=== PATIENT | female | born 1980 | race American Indian/Alaskan Native ===

== ENCOUNTER 2016-08-19 08:59 | Outpatient (CLI) | payer OTHER ==
[2016-08-19] MEDS ORDERED: LACTATED RINGERS 500 ML IV SCH (09:11)
[2016-08-19 09:28] VITALS: BP 99/60
[2016-08-19 09:42] LABS: Urine Drugs of Abuse Note Disclamer
[2016-08-19 09:55] LABS: Bilirubin,Urine NEG (Negative); Blood,Urine NEG (Negative); Ketones,Urine NEG (Negative); Leukocyte Esterase,Urine NEG (Negative); Mucus,Urine FEW /HPF; Nitrite,Urine NEG (Negative); Protein,Urine <15 mg/dL mg/dL (Negative); RBC,Urine < 1.0 /HPF (0.0-6.0); Urobilinogen,Urine < 2.0 mg/dL (<2.0)
[2016-08-19 09:56] LABS: WBC,Urine < 1.0 /HPF (0.0-6.0)
--- NOTE | 2016-08-19 15:36 | Ultrasound Report ---
COMPLETE OB ULTRASOUND: Gestation: blackwell Position: cephalic Amniotic Fluid: x Placenta: right anterior/posterior Placental Grade: 0 Heart Rate: 145 BPM Cervical length: 3.3 cm (Normal > 3 cm) NEUROANATOMY VISUALIZED: Choroid Plexus Cisterna Magnum Cerebellum Lateral Ventricle ANATOMY VISUALIZED: Stomach Kidneys Bladder Diaphragm 4 Chamber Heart Heart 3 Vessel Cord Abd. Cord Insert SPINE VISUALIZED: Transverse The following are not demonstrated due to maternal body habitus or lie: BPD: 4.7 cm = 20 w 0 d HC: 16.8 cm = 19 w 3 d AC: 14.7 cm = 20 w 0 d FL: 3.3 cm = 20 w 0 d HC/AC Ratio: 1.14 Cephalic Index: 80.6 Estimated Weight: 334 grams US Gest. Age = 20 w 0 d EDC: 01/06/17 AP and longitudinal spine not visualized.
== END 2016-08-19 12:07 | disposition home or self-care (01) ==
LOC: TRG 08:59
PROVIDERS: ATTEND Obstetrics & Gynecology
DX: O47.02 False labor before 37 completed weeks of gestation, second trimester (principal); Z3A.20 20 weeks gestation of pregnancy
CPT/HCPCS: 76805; 80307; 81001

== ENCOUNTER 2017-05-23 12:36 | Emergency (ER) | payer MEDICAID ==
[2017-05-23] MEDS ORDERED: NACL 0.9% 1000 ML 1,000 ML IV ONE (13:20)
[2017-05-23] MEDS ORDERED: MORPHINE IV ONE (13:22)
--- NOTE | 2017-05-23 13:25 | Emergency Department Report ---
Chief Complaint: Abdominal Pain Stated Complaint: ABDOMINAL PAIN - HPI History of Present Illness: 36-year-old female presents via EMS with 2 day history of lower abdominal discomfort, diarrhea and a productive cough that she feels in her mid back. She has tried some ibuprofen without relief. History of diverticulitis and says this feels similar in regards to abdominal discomfort. No PCP. No recent travel or sick contacts at home. Patient gave one month ago and says that she is currently now on her menstrual cycle. She says she has not had intercourse since giving and denies chance of . - ROS Review of Systems: Patient is positive for productive cough, abdominal pain, diarrhea. Patient is negative for fever, constipation, chest pain, shortness of breath, vaginal bleeding or discharge - Exam Vital Signs: Vital Signs 05/23/17 12:39 Temperature 98.3 F Pulse Rate 107 H Respiratory 16 Rate Blood Pressure 129/81 O2 Sat by Pulse 98 Oximetry Physical Exam: Patient is awake and alert. Lower abdominal tenderness to palpation. Heart and lungs sounds are normal to auscultation but slightly tachycardia. No focal deficits. MSE screening note: Focused history and physical exam performed. Due to findings the following was ordered: I ordered a CBC, CMP, serum , urinalysis, lipase. We will place an IV and give IV fluid and pain medication. ED Disposition for MSE Condition: Stable Instructions: Abdominal Pain (ED)
[2017-05-23 13:54] LABS: Basophils # (Auto) 0.1 K/mm3 (0.0-0.1); Basophils % (Auto) 1.3 % (0.0-1.8); Eosinophils # (Auto) 0.3 K/mm3 (0.0-0.4); Eosinophils % (Auto) 4.6 % (0.0-4.3); Hematocrit 38.1 % (30.3-42.9); Hemoglobin 12.6 gm/dl (10.1-14.3); Lymphocytes # (Auto) 0.6 K/mm3 (1.2-5.4); Lymphocytes % (Auto) 10.2 % (13.4-35.0); Mean Corpuscular HGB Conc 33 % (30-34); Mean Corpuscular Hemoglobin 31 pg (28-32); Mean Corpuscular Volume 95 fl (79-97); Monocytes # (Auto) 0.5 K/mm3 (0.0-0.8); Monocytes % (Auto) 9.1 % (0.0-7.3); Platelet Count 238 K/mm3 (140-440); Red Blood Count 4.02 M/mm3 (3.65-5.03); Red Cell Distribution Width 14.7 % (13.2-15.2)
[2017-05-23 14:07] LABS: Alanine Aminotransferase 20 units/L (7-56); Albumin 3.8 g/dL (3.9-5); BUN/Creatinine Ratio 14; Blood Urea Nitrogen 11 mg/dL (7-17); Calcium 8.8 mg/dL (8.4-10.2); Hemolysis Index 9; Lipase 17 units/L (13-60)
[2017-05-23 14:08] LABS: Bilirubin,Direct < 0.2 mg/dL (0-0.2)
[2017-05-23] MEDS ORDERED: TESSALON PERLES PO ONE (14:16)
[2017-05-23] MEDS ORDERED: DUONEB *Not for PRN Use IH ONE (14:25)
--- NOTE | 2017-05-23 15:41 | XRay Report ---
FINAL REPORT EXAM: XR ABD SERIES W CXR 1V HISTORY: cough, abd pain TECHNIQUE: Frontal chest and two views of the abdomen were performed Comparison: None FINDINGS: Normal heart size. There is an 18 millimeter dense nodularity in the right lung base which presumably represents the patient's nipple. The patient's left nipple is also prominent. Lungs are otherwise clear and well expanded with no hilar contour abnormality. There is no free air. No suspicious calcifications. Moderate stool air and stool throughout the small and large bowel in a nonobstructive pattern. No definite ileus. IMPRESSION: No definite acute pathology. Prominent nipple shadows in the bases.
[2017-05-23] MEDS ORDERED: DILAUDID IV ONE (16:51)
[2017-05-23] MEDS ORDERED: ZOFRAN IV ONE (16:52)
--- NOTE | 2017-05-23 16:58 | Emergency Department Report ---
ED N/V/D HPI - General Chief complaint: Abdominal Pain Stated complaint: ABDOMINAL PAIN Time Seen by Provider: 05/23/17 16:32 Source: patient Mode of arrival: Ambulatory Limitations: No Limitations - History of Present Illness Initial comments: Physical 36-year-old female with a past medical history significant for diverticulitis who comes in with a 2 day complaint of intermittent abdominal pain as well as upper respiratory type infections. She states that she just had her baby about a month ago. She also reports that the pain today is very similar to her diverticular pain which she has experienced in the past. She denies any kind of fever nausea vomiting but admits to intermittent diarrhea. Denies any blood in bowel movements. She states that her diverticular pain flares up every couple of months. She states she's had over 30 CAT scans and does not want any CAT scans done since she knows this is her diverticular pain. She states that she usually gets antibiotics for this and would appreciate some today. She also states that she's had a cough and cold as well for the past couple of days. She is concerned about the flu and would like to be tested for it. She denies other complaints at this time. 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 MD complaint: diarrhea, abdominal pain -: days(s) (2) Description of Vomiting: other (no vomiting) Description of Diarrhea: water Associated Abdominal Pain: Yes Location: LLQ, RLQ Radiation: none Severity: moderate Pain Scale: 8 Quality: cramping, stabbing Consistency: intermittent Improves with: none Worsens with: none Context: other (history of diverticulitis.) Associated Symptoms: denies other symptoms - Related Data Previous Rx's Medication Instructions Recorded Last Taken Type Promethazine [Phenergan TAB] 25 mg PO Q6HR PRN #14 tab 01/10/15 Unknown Rx oxyCODONE /ACETAMINOPHEN [Percocet 1 tab PO Q6HR PRN #15 tablet 01/10/15 Unknown Rx 5/325] Ciprofloxacin HCl [Ciprofloxacin 500 mg PO BID #20 tablet 05/23/17 Unknown Rx TAB] Hycodan Cough Syrup 5 ml PO BID PRN #100 ml 05/23/17 Unknown Rx Ondansetron [Zofran Odt] 4 mg PO Q8HR PRN #20 tab.rapdis 05/23/17 Unknown Rx metroNIDAZOLE [Flagyl TAB] 500 mg PO TID #30 tab 05/23/17 Unknown Rx Allergies Allergy/AdvReac Type Severity Reaction Status Date / Time No Known Allergies Allergy Verified 05/23/17 12:39 ED Review of Systems ROS: Stated complaint: ABDOMINAL PAIN Other details as noted in HPI Comment: All other systems reviewed and negative Constitutional: no symptoms reported Eyes: denies: eye pain, eye discharge ENT: as per HPI, congestion. denies: ear pain, dental pain, hearing loss, epistaxis Respiratory: no symptoms reported Cardiovascular: as per HPI. denies: chest pain, palpitations Endocrine: no symptoms reported Gastrointestinal: as per HPI Genitourinary: as per HPI Musculoskeletal: as per HPI Skin: as per HPI Neurological: as per HPI Psychiatric: as per HPI Hematological/Lymphatic: as per HPI ED Past Medical Hx - Past Medical History Additional medical history: C-DIFF, diverticulitis - Surgical History Additional Surgical History: D & C, polyps removed - Social History Smoking Status: Never Smoker Substance Use Type: None - Medications Home Medications: Home Medications Medication Instructions Recorded Confirmed Last Taken Type Promethazine [Phenergan TAB] 25 mg PO Q6HR PRN #14 tab 01/10/15 Unknown Rx oxyCODONE /ACETAMINOPHEN [Percocet 1 tab PO Q6HR PRN #15 tablet 01/10/15 Unknown Rx 5/325] Ciprofloxacin HCl [Ciprofloxacin 500 mg PO BID #20 tablet 05/23/17 Unknown Rx TAB] Hycodan Cough Syrup 5 ml PO BID PRN #100 ml 05/23/17 Unknown Rx Ondansetron [Zofran Odt] 4 mg PO Q8HR PRN #20 tab.rapdis 05/23/17 Unknown Rx metroNIDAZOLE [Flagyl TAB] 500 mg PO TID #30 tab 05/23/17 Unknown Rx ED Physical Exam - General Limitations: No Limitations General appearance: alert, in no apparent distress - Head Head exam: Present: atraumatic - Eye Eye exam: Present: normal appearance, PERRL, EOMI - ENT ENT exam: Present: normal exam, normal orophraynx - Neck Neck exam: Present: normal inspection, full ROM - Respiratory Respiratory exam: Present: normal lung sounds bilaterally. Absent: respiratory distress, wheezes, rales, rhonchi - Cardiovascular Cardiovascular Exam: Present: normal rhythm, tachycardia. Absent: irregular rhythm - GI/Abdominal GI/Abdominal exam: Present: soft, tenderness, hyperactive bowel sounds. Absent : guarding, rebound, rigid - Rectal Rectal exam: Present: deferred - Extremities Exam Extremities exam: Present: normal inspection - Back Exam Back exam: Present: normal inspection - Neurological Exam Neurological exam: Present: alert, oriented X3, CN II-XII intact - Psychiatric Psychiatric exam: Present: normal affect, agitated - Skin Skin exam: Present: warm, dry, intact, normal color ED Course Vital Signs 05/23/17 12:39 Temperature 98.3 F Pulse Rate 107 H Respiratory 16 Rate Blood Pressure 129/81 O2 Sat by Pulse 98 Oximetry - Reevaluation(s) Reevaluation #1: 05/23/17 17:01 At this time I do not see the need to order a CAT scan of her abdomen and pelvis. Since she is concerned about the flu we'll go ahead and do a flu swab. Her blood work from the medical screening examination does appear to be mostly within normal range. White count is not elevated nor does she have any kind of electrolyte abnormalities at this time. Her lipase is also within normal range. Her plain films do reveal some nonspecific bowel gas patterns. Awaiting for the UA results to return as well as the flu swab. For her pain she 's already had morphine but she states it only lasted for "a second" and then the pain came back. When asked she does state the Dilantin does better for her and that she would prefer at this time. I will give her 1 mg of Dilaudid IV as well as 4 mg of Zofran IV. She requested a facemask as well which I went ahead and provided to her. When the lab results are back we will discuss how to proceed. 05/23/17 18:12 I reviewed the findings with the patient and advised her that all the blood test and x-rays were essentially negative. She does not have flu. She does not have strep throat. Her urinalysis is also within normal limits. The patient is requesting something for a cough or which I will give her a nonnarcotic cough syrup. She is requesting IV antibiotics because she says that 's what she gets whenever her diverticulitis flares up. So at this time we will go ahead and give her Levaquin IV as well as Flagyl IV. I will be discharging this patient as I do not see a reason for admission at this time. ED Medical Decision Making - Lab Data Result diagrams: 05/23/17 13:35 05/23/17 13:35 Critical care attestation.: If time is entered above; I have spent that time in minutes in the direct care of this critically ill patient, excluding procedure time. ED Disposition Clinical Impression: Diverticulitis Upper respiratory infection Qualifiers: URI type: unspecified viral URI Qualified Code(s): J06.9 - Acute upper respiratory infection, unspecified Disposition: - TO HOME OR SELFCARE Is pt being admited?: No Does the pt Need Aspirin: No Condition: Stable Instructions: Abdominal Pain (ED), Diverticulitis (ED), Upper Respiratory Infection (ED) Additional Instructions: rest, fluids, follow up with your primary care doctor and/or GI doctor, return as needed, watch for worsening, new symptoms, call 911 if you think you're having a life threatening emergency. Prescriptions: Ciprofloxacin HCl [Ciprofloxacin TAB] 500 mg PO BID #20 tablet Hycodan Cough Syrup 5 ml PO BID PRN #100 ml PRN Reason: Cough metroNIDAZOLE [Flagyl TAB] 500 mg PO TID #30 tab Ondansetron [Zofran Odt] 4 mg PO Q8HR PRN #20 tab.rapdis PRN Reason: Nausea And Vomiting Referrals: PRIMARY CARE,MD [Primary Care Provider] - 3-5 Days
[2017-05-23 17:43] LABS: Bilirubin,Urine NEG (Negative); Blood,Urine LG (Negative); Color,Urine Yellow (Yellow); Nitrite,Urine NEG (Negative); Protein,Urine <15 mg/dL mg/dL (Negative); WBC,Urine < 1.0 /HPF (0.0-6.0)
[2017-05-23] MEDS ORDERED: LEVAQUIN 500MG/100ML 500 MG/100 ML BAG IV ONE (17:54)
[2017-05-23] MEDS ORDERED: FLAGYL 500 MG/100 ML 500 MG/100 ML BAG IV SCH (18:00)
[2017-05-23] MEDS ORDERED: TORADOL IV ONE (19:11)
[2017-05-23] MEDS ORDERED: NORCO 5/325 PO ONE (19:22)
[2017-05-23 21:04] VITALS: BP 122/73
== END 2017-05-23 21:04 | disposition home or self-care (01) ==
LOC: ED 12:36
DX: K57.92 Diverticulitis of intestine, part unspecified, without perforation or abscess without bleeding (principal); J06.9 Acute upper respiratory infection, unspecified
CPT/HCPCS: 36415; 74022; 80048; 80074; 81001; 83690; 84703; 85025; 87116; 87400; 87430; 96361; 96365; 96368; 96375; 99284; J1170; J1956; J2270; J2405; J7030

== ENCOUNTER 2018-07-15 08:27 | Emergency (ER) | payer MEDICAID ==
[2018-07-15 09:20] LABS: Basophils % (Auto) 0.3 % (0.0-1.8); Eosinophils # (Auto) 0.2 K/mm3 (0.0-0.4); Eosinophils % (Auto) 3.6 % (0.0-4.3); Hematocrit 39.6 % (30.3-42.9); Hemoglobin 13.2 gm/dl (10.1-14.3); Lymphocytes # (Auto) 0.7 K/mm3 (1.2-5.4); Lymphocytes % (Auto) 11.4 % (13.4-35.0); Mean Corpuscular HGB Conc 33 % (30-34); Mean Corpuscular Volume 97 fl (79-97); Monocytes # (Auto) 0.7 K/mm3 (0.0-0.8); Monocytes % (Auto) 11.7 % (0.0-7.3); Platelet Count 232 K/mm3 (140-440); Red Blood Count 4.09 M/mm3 (3.65-5.03); Red Cell Distribution Width 13.8 % (13.2-15.2)
[2018-07-15 09:27] LABS: Bilirubin,Urine NEG (Negative); Blood,Urine SM (Negative); Color,Urine Yellow (Yellow); Protein,Urine <15 mg/dL mg/dL (Negative); Urobilinogen,Urine < 2.0 mg/dL (<2.0); WBC,Urine < 1.0 /HPF (0.0-6.0)
[2018-07-15 09:33] LABS: Alanine Aminotransferase 16 units/L (7-56); Albumin 4.2 g/dL (3.9-5); BUN/Creatinine Ratio 14; Blood Urea Nitrogen 10 mg/dL (7-17); Calcium 9.2 mg/dL (8.4-10.2); Hemolysis Index 7
[2018-07-15] MEDS ORDERED: MORPHINE IV ONE ×2 (10:05→12:45)
--- NOTE | 2018-07-15 10:08 | Emergency Department Report ---
ED Abdominal Pain HPI - General Chief Complaint: Abdominal Pain Stated Complaint: ABD PAIN Source: patient Mode of arrival: Ambulatory Limitations: No Limitations - History of Present Illness Initial Comments: This is a 37-year-old [place] female that presents with diffuse abdominal pain for 4 days. Past medical history of diverticulitis and C. difficile. She states she ate some peanut butter and jelly and weak. A few days ago and been sick ever since. She is now complaining of abdominal pain and diarrhea. She is currently taking Tylenol with no improvement of symptoms. She denies that her stools, nausea or vomiting, chest pain, fever, or cough. MD Complaint: abdominal pain Onset/Timin -: days(s) Location: diffuse Radiation: none Migration to: no migration Severity scale (0 -10): 8 Quality: aching, sharp Consistency: constant Improves With: nothing Worsens With: eating Associated Symptoms: diarrhea. denies: nausea, vomiting, fever, chills, constipation, dysuria, hematemesis, hematochezia, melena, hematuria, anorexia, syncope Treatments Prior to Arrival: NSAIDs - Related Data LMP Date: 06/17/18 Previous Rx's Medication Instructions Recorded Last Taken Type Promethazine [Phenergan TAB] 25 mg PO Q6HR PRN #14 tab 01/10/15 Unknown Rx oxyCODONE /ACETAMINOPHEN [Percocet 1 tab PO Q6HR PRN #15 tablet 01/10/15 Unknown Rx 5/325] Ciprofloxacin HCl [Ciprofloxacin 500 mg PO BID #20 tablet 05/23/17 Unknown Rx TAB] Hycodan Cough Syrup 5 ml PO BID PRN #100 ml 05/23/17 Unknown Rx Ondansetron [Zofran Odt] 4 mg PO Q8HR PRN #20 tab.rapdis 05/23/17 Unknown Rx metroNIDAZOLE [Flagyl TAB] 500 mg PO TID #30 tab 05/23/17 Unknown Rx Ciprofloxacin HCl [Cipro] 500 mg PO BID #14 tablet 07/15/18 Unknown Rx traMADol [Ultram 50 MG tab] 50 mg PO Q6HR PRN #12 tablet 07/15/18 Unknown Rx Allergies Allergy/AdvReac Type Severity Reaction Status Date / Time ketorolac [From Toradol] Allergy Unknown Verified 07/15/18 12:17 ED Review of Systems ROS: Stated complaint: ABD PAIN Other details as noted in HPI Constitutional: denies: chills, fever Respiratory: denies: cough, shortness of breath, wheezing Cardiovascular: denies: chest pain, palpitations Gastrointestinal: abdominal pain, diarrhea. denies: nausea Skin: denies: rash, lesions Neurological: denies: headache, weakness, paresthesias Psychiatric: denies: anxiety, depression ED Past Medical Hx - Past Medical History Previous Medical History?: Yes Additional medical history: C-DIFF, diverticulitis - Surgical History Past Surgical History?: Yes Additional Surgical History: D & C, polyps removed - Social History Smoking Status: Never Smoker Substance Use Type: None - Medications Home Medications: Home Medications Medication Instructions Recorded Confirmed Last Taken Type Promethazine [Phenergan TAB] 25 mg PO Q6HR PRN #14 tab 01/10/15 Unknown Rx oxyCODONE /ACETAMINOPHEN [Percocet 1 tab PO Q6HR PRN #15 tablet 01/10/15 Unknown Rx 5/325] Ciprofloxacin HCl [Ciprofloxacin 500 mg PO BID #20 tablet 05/23/17 Unknown Rx TAB] Hycodan Cough Syrup 5 ml PO BID PRN #100 ml 05/23/17 Unknown Rx Ondansetron [Zofran Odt] 4 mg PO Q8HR PRN #20 tab.rapdis 05/23/17 Unknown Rx metroNIDAZOLE [Flagyl TAB] 500 mg PO TID #30 tab 05/23/17 Unknown Rx Ciprofloxacin HCl [Cipro] 500 mg PO BID #14 tablet 07/15/18 Unknown Rx traMADol [Ultram 50 MG tab] 50 mg PO Q6HR PRN #12 tablet 07/15/18 Unknown Rx ED Physical Exam - General Limitations: No Limitations General appearance: alert, in no apparent distress - Respiratory Respiratory exam: Present: normal lung sounds bilaterally. Absent: respiratory distress - Cardiovascular Cardiovascular Exam: Present: regular rate, normal rhythm. Absent: systolic murmur, diastolic murmur, rubs, gallop - GI/Abdominal GI/Abdominal exam: Present: soft, tenderness (RUQ & RLQ ), normal bowel sounds. Absent: distended, guarding, rebound, rigid, organomegaly, mass, bruit, pulsatile mass, hernia - Back Exam Back exam: Absent: CVA tenderness (R), CVA tenderness (L) - Neurological Exam Neurological exam: Present: alert, oriented X3 - Psychiatric Psychiatric exam: Present: normal affect, normal mood - Skin Skin exam: Present: warm, dry, intact, normal color. Absent: rash ED Course Vital Signs 07/15/18 08:34 Temperature 97.9 F Pulse Rate 88 Respiratory 16 Rate Blood Pressure 141/90 O2 Sat by Pulse 99 Oximetry ED Medical Decision Making - Lab Data Result diagrams: 07/15/18 09:01 07/15/18 09:01 Lab Results 07/15/18 07/15/18 07/15/18 Range/Units 09:01 09:01 09:01 WBC 6.4 (4.5-11.0) K/mm3 RBC 4.09 (3.65-5.03) M/mm3 Hgb 13.2 (10.1-14.3) gm/dl Hct 39.6 (30.3-42.9) % MCV 97 (79-97) fl MCH 32 (28-32) pg MCHC 33 (30-34) % RDW 13.8 (13.2-15.2) % Plt Count 232 (140-440) K/mm3 Lymph % (Auto) 11.4 L (13.4-35.0) % [place] % (Auto) 11.7 H (0.0-7.3) % Eos % (Auto) 3.6 (0.0-4.3) % Baso % (Auto) 0.3 (0.0-1.8) % Lymph # 0.7 L (1.2-5.4) K/mm3 [place] # 0.7 (0.0-0.8) K/mm3 Eos # 0.2 (0.0-0.4) K/mm3 Baso # 0.0 (0.0-0.1) K/mm3 Seg Neutrophils % 73.0 H (40.0-70.0) % Seg Neutrophils # 4.7 (1.8-7.7) K/mm3 Sodium 140 (137-145) mmol/L Potassium 4.0 (3.6-5.0) mmol/L Chloride 101.5 (98-107) mmol/L Carbon Dioxide 29 (22-30) mmol/L Anion Gap 14 mmol/L BUN 10 (7-17) mg/dL Creatinine 0.7 (0.7-1.2) mg/dL Estimated GFR > 60 ml/min BUN/Creatinine Ratio 14 % Glucose 147 H (65-100) mg/dL Calcium 9.2 (8.4-10.2) mg/dL Total Bilirubin 0.40 (0.1-1.2) mg/dL AST 19 (5-40) units/L ALT 16 (7-56) units/L Alkaline Phosphatase 70 (35-129) units/L Total Protein 7.3 (6.3-8.2) g/dL Albumin 4.2 (3.9-5) g/dL Albumin/Globulin Ratio 1.4 % HCG, Qual Negative (Negative) Urine Color (Yellow) Urine Turbidity (Clear) Urine pH (5.0-7.0) Ur Specific [place] (1.003-1.030) Urine Protein (Negative) mg/dL Urine Glucose (UA) (Negative) mg/dL Urine Ketones (Negative) mg/dL Urine Blood (Negative) Urine Nitrite (Negative) Urine Bilirubin (Negative) Urine Urobilinogen (<2.0) mg/dL Ur Leukocyte Esterase (Negative) Urine WBC (Auto) (0.0-6.0) /HPF Urine RBC (Auto) (0.0-6.0) /HPF U Epithel Cells (Auto) (0-13.0) /HPF 07/15/18 Range/Units 09:14 WBC (4.5-11.0) K/mm3 RBC (3.65-5.03) M/mm3 Hgb (10.1-14.3) gm/dl Hct (30.3-42.9) % MCV (79-97) fl MCH (28-32) pg MCHC (30-34) % RDW (13.2-15.2) % Plt Count (140-440) K/mm3 Lymph % (Auto) (13.4-35.0) % [place] % (Auto) (0.0-7.3) % Eos % (Auto) (0.0-4.3) % Baso % (Auto) (0.0-1.8) % Lymph # (1.2-5.4) K/mm3 [place] # (0.0-0.8) K/mm3 Eos # (0.0-0.4) K/mm3 Baso # (0.0-0.1) K/mm3 Seg Neutrophils % (40.0-70.0) % Seg Neutrophils # (1.8-7.7) K/mm3 Sodium (137-145) mmol/L Potassium (3.6-5.0) mmol/L Chloride (98-107) mmol/L Carbon Dioxide (22-30) mmol/L Anion Gap mmol/L BUN (7-17) mg/dL Creatinine (0.7-1.2) mg/dL Estimated GFR ml/min BUN/Creatinine Ratio % Glucose (65-100) mg/dL Calcium (8.4-10.2) mg/dL Total Bilirubin (0.1-1.2) mg/dL AST (5-40) units/L ALT (7-56) units/L Alkaline Phosphatase (35-129) units/L Total Protein (6.3-8.2) g/dL Albumin (3.9-5) g/dL Albumin/Globulin Ratio % HCG, Qual (Negative) Urine Color Yellow (Yellow) Urine Turbidity Clear (Clear) Urine pH 6.0 (5.0-7.0) Ur Specific [place] 1.019 (1.003-1.030) Urine Protein <15 mg/dl (Negative) mg/dL Urine Glucose (UA) Neg (Negative) mg/dL Urine Ketones Neg (Negative) mg/dL Urine Blood Sm (Negative) Urine Nitrite Neg (Negative) Urine Bilirubin Neg (Negative) Urine Urobilinogen < 2.0 (<2.0) mg/dL Ur Leukocyte Esterase Neg (Negative) Urine WBC (Auto) < 1.0 (0.0-6.0) /HPF Urine RBC (Auto) 4.0 (0.0-6.0) /HPF U Epithel Cells (Auto) 2.0 (0-13.0) /HPF - Radiology Data Radiology results: report reviewed CT ABDOMEN PELVIS WITH CONTRAST: HISTORY: Right upper quadrant and right lower quadrant abdominal pain. COMPARISON: CT abdomen pelvis with contrast dated 01/10/15. TECHNIQUE: Helical CT in 1.25mm intervals following IV contrast. Sagittal and coronal reconstructions. FINDINGS: Lung bases: Normal. Liver: Normal. Biliary system: Normal. Pancreas: The pancreatic parenchyma is unremarkable. The pancreatic duct appears mildly dilated. No obvious pancreatic inflammation or mass. Spleen: Normal. Kidneys/ureters/bladder: Normal. Adrenal glands: Normal. Aorta: Normal. Intestines: No oral contrast was administered which limits this exam. There are numerous diverticula throughout the length of the colon. This appears advanced for this persons age. No obvious site of acute diverticulitis on this limited exam. There is a 2.5 cm rounded collection with a fluid level within the duodenal C-loop. This may represent a duodenal diverticulum. Peptic ulcer disease is thought less likely but is difficult to exclude. Appendix: Not confidently identified, correlate with surgical history. Pelvic viscera: 2.0 cm peripherally enhancing right ovarian cyst is identified. The uterus and left adnexa are unremarkable. Ascites: Small pelvic ascites. Adenopathy: None. Musculoskeletal: Normal. IMPRESSION: 2 cm right ovarian cyst. Small pelvic ascites. Diffuse diverticulosis of the colon. No obvious acute diverticulitis but this examination is limited without oral contrast. The appendix is not confidently identified. Probable 2.5 cm duodenal diverticulum as described above. A penetrating ulcer is thought less likely. Please correlate with the patient's clinical presentation. - Medical Decision Making This is a 37 y.o. female that presents with vomiting and diarrhea that started last night. Patient is stable and was examined by me. Vitals stable. Obtained labs and CT of abdomen and. 2 cm right ovarian cyst. Small pelvic ascites. D iffuse diverticulosis of the colon. No obvious acute diverticulitis but this examination is limited without oral contrast. The appendix is not confidently identified. Probable 2.5 cm duodenal diverticulum as described above. A penetrating ulcer is thought less likely. Please correlate with the patient's clinical presentation. The site initiated. Given normal saline, morphine, Protonix, and zofran in ER. Diverticular disease. Start cipro and tramadols. Discussed plan with patient and agreed to plan. No further questions noted by the patient. Discharged home in stable condition. Follow up with PCP in 2-3 days. Critical care attestation.: If time is entered above; I have spent that time in minutes in the direct care of this critically ill patient, excluding procedure time. ED Disposition Clinical Impression: Diverticular disease of colon Abdominal pain Qualifiers: Abdominal location: generalized Qualified Code(s): R10.84 - Generalized a bdominal pain Diarrhea Qualifiers: Diarrhea type: functional diarrhea Qualified Code(s): K59.1 - Functional diarrhea Disposition: TO HOME OR SELFCARE Is pt being admited?: No Does the pt Need Aspirin: No Condition: Stable Instructions: Abdominal Pain (ED), Diverticulosis (ED), Diverticulosis Diet (ED) Additional Instructions: Complete full course of antibiotics as prescribed. Avoid drinking alcohol while taking antibiotics for 24 hours after. Follow-up with your primary care provider for continued care. Prescriptions: Ciprofloxacin HCl [Cipro] 500 mg PO BID #14 tablet traMADol [Ultram 50 MG tab] 50 mg PO Q6HR PRN #12 tablet PRN Reason: Pain Referrals: JESUS MILLER MD [Primary Care Provider] - 3-5 Days [facility] [Outside] - 3-5 Days [facility] [Outside] - 3-5 Days Forms: Work/School Release Form(ED) Time of Disposition: 12:50
[2018-07-15] MEDS ORDERED: NACL 0.9% 1000 ML 1,000 ML IV ONE (10:09)
[2018-07-15] MEDS ORDERED: TORADOL IV ONE (11:52)
--- NOTE | 2018-07-15 12:11 | Cat Scan Report ---
CT ABDOMEN PELVIS WITH CONTRAST: HISTORY: Right upper quadrant and right lower quadrant abdominal pain. COMPARISON: CT abdomen pelvis with contrast dated 01/10/15. TECHNIQUE: Helical CT in 1.25mm intervals following IV contrast. Sagittal and coronal reconstructions. FINDINGS: Lung bases: Normal. Liver: Normal. Biliary system: Normal. Pancreas: The pancreatic parenchyma is unremarkable. The pancreatic duct appears mildly dilated. No obvious pancreatic inflammation or mass. Spleen: Normal. Kidneys/ureters/bladder: Normal. Adrenal glands: Normal. Aorta: Normal. Intestines: No oral contrast was administered which limits this exam. There are numerous diverticula throughout the length of the colon. This appears advanced for this persons age. No obvious site of acute diverticulitis on this limited exam. There is a 2.5 cm rounded collection with a fluid level within the duodenal C-loop. This may represent a duodenal diverticulum. Peptic ulcer disease is thought less likely but is difficult to exclude. Appendix: Not confidently identified, correlate with surgical history. Pelvic viscera: 2.0 cm peripherally enhancing right ovarian cyst is identified. The uterus and left adnexa are unremarkable. Ascites: Small pelvic ascites. Adenopathy: None. Musculoskeletal: Normal. IMPRESSION: 2 cm right ovarian cyst. Small pelvic ascites. Diffuse diverticulosis of the colon. No obvious acute diverticulitis but this examination is limited without oral contrast. The appendix is not confidently identified. Probable 2.5 cm duodenal diverticulum as described above. A penetrating ulcer is thought less likely. Please correlate with the patient's clinical presentation.
[2018-07-15] MEDS ORDERED: PROTONIX IV ONE (12:45)
[2018-07-15] MEDS ORDERED: ZOFRAN IV ONE (12:45)
[2018-07-15 13:23] VITALS: BP 123/88
== END 2018-07-15 13:22 | disposition home or self-care (01) ==
LOC: ED 08:27
DX: K57.92 Diverticulitis of intestine, part unspecified, without perforation or abscess without bleeding (principal); Z88.5 Allergy status to narcotic agent
CPT/HCPCS: 36415; 74177; 80053; 81001; 84703; 85025; 96361; 96374; 96375; 96376; 99284; C9113; J1885; J2270; J2405; J7030; Q9967

== ENCOUNTER 2020-11-26 14:04 | Emergency (ER) | payer BC, MEDICAID ==
[2020-11-26 15:26] VITALS: BP 148/100
[2020-11-26] MEDS ORDERED: predniSONE 20 MG TAB PO ONE ×2 (16:13→16:16)
[2020-11-26] MEDS ORDERED: KETOROLAC 60 MG/2 ML INJ IM ONE (16:13)
[2020-11-26] MEDS ORDERED: HYDROcodone/ACETAMINOPHEN 10-325MG TAB PO ONE (16:16)
[2020-11-26 18:40] LABS: Bilirubin,Urine NEG (Negative); Blood,Urine NEG (Negative); Color,Urine Yellow (Yellow); Protein,Urine <15 mg/dL mg/dL (Negative); Urobilinogen,Urine < 2.0 mg/dL (<2.0); WBC,Urine < 1.0 /HPF (0.0-6.0)
[2020-11-26 18:41] LABS: HCG Qualitative,Urine Negative (Negative)
--- NOTE | 2020-11-26 18:56 | Emergency Department Report ---
ED Back Pain/Injury HPI - General Chief Complaint: Back Pain/Injury Stated Complaint: BACK PAIN Time Seen by Provider: 11/26/20 16:09 Source: patient Limitations: No Limitations - History of Present Illness Initial Comments: This is a 40-year-old female nontoxic, well nourished in appearance, no acute signs of distress presents to the ED with c/o of acute on chronic lower back pain. Patient stated that the past 2 days she was heavy lifting and developed this pain. Patient denies any radiation of pain. Patient denies any trauma. Denies any bladder or bowel instability. Patient denies any urinary symptoms. Denies any fever, chills, nausea, vomiting, headache, stiff neck, chest pain or shortness of breath. Patient denies any numbness or tingling. Patient stated allergies to Ketorolac but stated takes OTC motrin with no allergies. Denies significant past medical history. MD Complaint: back pain -: days(s) Similar Symptoms Previously: Yes Place: home Radiation: none Severity: mild Severity scale (0 -10): 8 Quality: aching Consistency: intermittent Improves With: immobilization, sitting upright Worsens With: movement, walking Context: while lifting, turning/twisting Associated Symptoms: denies other symptoms. denies: confusion, chest pain, numbness, difficulty walking, cough, difficulty urinating, diaphoresis, incontinence, fever/chills, constipation, headaches, abdominal pain, loss of appetite, malaise, nausea/vomiting, rash, seizure, shortness of breath, syncope - Related Data Previous Rx's Medication Instructions Recorded Last Taken Type Promethazine [Phenergan TAB] 25 mg PO Q6HR PRN #14 tab 01/10/15 Unknown Rx oxyCODONE /ACETAMINOPHEN [Percocet 1 tab PO Q6HR PRN #15 tablet 01/10/15 Unknown Rx 5/325] Ciprofloxacin HCl [Ciprofloxacin 500 mg PO BID #20 tablet 05/23/17 Unknown Rx TAB] Hycodan Cough Syrup 5 ml PO BID PRN #100 ml 05/23/17 Unknown Rx Ondansetron [Zofran Odt] 4 mg PO Q8HR PRN #20 tab.rapdis 05/23/17 Unknown Rx metroNIDAZOLE [Flagyl TAB] 500 mg PO TID #30 tab 05/23/17 Unknown Rx Ciprofloxacin HCl [Cipro] 500 mg PO BID #14 tablet 07/15/18 Unknown Rx traMADoL [Ultram 50 MG tab] 50 mg PO Q6HR PRN #12 tablet 07/15/18 Unknown Rx Cyclobenzaprine [Flexeril] 10 mg PO QHS PRN #10 tablet 11/26/20 Unknown Rx Naproxen 500 mg PO Q12H PRN #12 tablet 11/26/20 Unknown Rx Allergies Allergy/AdvReac Type Severity Reaction Status Date / Time ketorolac [From Toradol] Allergy Unknown Verified 07/15/18 12:17 ED Review of Systems ROS: Stated complaint: BACK PAIN Other details as noted in HPI Comment: All other systems reviewed and negative Constitutional: denies: chills, fever Eyes: denies: eye pain, eye discharge, vision change ENT: denies: ear pain, throat pain Respiratory: denies: cough, shortness of breath, wheezing Cardiovascular: denies: chest pain, palpitations Endocrine: no symptoms reported Gastrointestinal: denies: abdominal pain, nausea, diarrhea Genitourinary: denies: urgency, dysuria, discharge Musculoskeletal: back pain. denies: joint swelling, arthralgia Skin: denies: rash, lesions Neurological: denies: headache, weakness, paresthesias Psychiatric: denies: anxiety, depression Hematological/Lymphatic: denies: easy bleeding, easy bruising ED Past Medical Hx - Past Medical History Previous Medical History?: No Additional medical history: C-DIFF, diverticulitis - Surgical History Past Surgical History?: Yes Additional Surgical History: D & C, polyps removed - Social History Smoking Status: Never Smoker Substance Use Type: None - Medications Home Medications: Home Medications Medication Instructions Recorded Confirmed Last Taken Type Promethazine [Phenergan TAB] 25 mg PO Q6HR PRN #14 tab 01/10/15 Unknown Rx oxyCODONE /ACETAMINOPHEN [Percocet 1 tab PO Q6HR PRN #15 tablet 01/10/15 Unknown Rx 5/325] Ciprofloxacin HCl [Ciprofloxacin 500 mg PO BID #20 tablet 05/23/17 Unknown Rx TAB] Hycodan Cough Syrup 5 ml PO BID PRN #100 ml 05/23/17 Unknown Rx Ondansetron [Zofran Odt] 4 mg PO Q8HR PRN #20 tab.rapdis 05/23/17 Unknown Rx metroNIDAZOLE [Flagyl TAB] 500 mg PO TID #30 tab 05/23/17 Unknown Rx Ciprofloxacin HCl [Cipro] 500 mg PO BID #14 tablet 07/15/18 Unknown Rx traMADoL [Ultram 50 MG tab] 50 mg PO Q6HR PRN #12 tablet 07/15/18 Unknown Rx Cyclobenzaprine [Flexeril] 10 mg PO QHS PRN #10 tablet 11/26/20 Unknown Rx Naproxen 500 mg PO Q12H PRN #12 tablet 11/26/20 Unknown Rx ED Physical Exam - General Limitations: No Limitations General appearance: alert, in no apparent distress - Head Head exam: Present: atraumatic, normocephalic - Eye Eye exam: Present: normal appearance - Neck Neck exam: Present: normal inspection, full ROM. Absent: lymphadenopathy - Respiratory Respiratory exam: Present: normal lung sounds bilaterally. Absent: respiratory distress, wheezes, rales, rhonchi, stridor, chest wall tenderness, accessory muscle use, decreased breath sounds, prolonged expiratory - Cardiovascular Cardiovascular Exam: Present: regular rate, normal rhythm, normal heart sounds. Absent: bradycardia, irregular rhythm, systolic murmur, diastolic murmur, rubs, gallop - GI/Abdominal GI/Abdominal exam: Present: soft, normal bowel sounds. Absent: distended, tenderness, guarding, rebound, rigid, diminished bowel sounds, mass, bruit, pulsatile mass - Extremities Exam Extremities exam: Present: normal inspection, full ROM, normal capillary refill. Absent: tenderness - Back Exam Back exam: Present: normal inspection, full ROM, paraspinal tenderness (Lumbar paraspinal). Absent: tenderness, CVA tenderness (R), CVA tenderness (L), muscle spasm, vertebral tenderness, rash noted - Expanded Back Exam Expanded Back exam: Absent: saddle anesthesia Back exam: Negative Straight Leg Raising: Left, Right - Neurological Exam Neurological exam: Present: alert, oriented X3, normal gait - Psychiatric Psychiatric exam: Present: normal affect, normal mood - Skin Skin exam: Present: warm, dry, intact, normal color. Absent: rash ED Course Vital Signs 11/26/20 15:23 Temperature 98.6 F Pulse Rate 83 Respiratory 20 Rate Blood Pressure 148/100 O2 Sat by Pulse 100 Oximetry - Reevaluation(s) Reevaluation #1: 11/26/20 18:55 Patient is speaking in full sentences with no signs of distress noted. ED Medical Decision Making - Medical Decision Making This is a 40-year-old male that presents with low back strain. Patient is stable was examined by me. There is no spinal tenderness. There is no cauda equina syndrome during examination. No bladder or bowel instability. Patient received Meth[place] and prednisone in the ED which stated that her symptoms has resolved and subsided. Patient stated that a family member will drive patient home after discharge due to possible drowsiness of Meth[place]. Patient is discharged with muscle relaxant and Motrin. Patient was instructed not to operate any machinery while taking muscle relaxant as they cause her drowsiness. Patient was referred to Follow-up with a primary care doctor in 3-5 days or if symptoms worsen and continue return to emergency room as soon as possible. At time of discharge, the patient does not seem toxic or ill in appearance. No acute signs of distress noted. Patient agrees to discharge treatment plan of care. No further questions noted by the patient. This chart is dictated with using [employer] Critical care attestation.: If time is entered above; I have spent that time in minutes in the direct care of this critically ill patient, excluding procedure time. ED Disposition Clinical Impression: Low back strain Disposition: - TO HOME OR SELFCARE Is pt being admited?: No Does the pt Need Aspirin: No Condition: Stable Instructions: Lumbar Strain Additional Instructions: Follow-up with your primary care doctor in 3-5 days or if symptoms worsen such as bladder or bowel stability, chest pain, short of breath, numbness or tingling sensation in extremities, headache, dizziness, visual changes, nausea vomiting, or abdominal pain, return back to emergency room as was possible. Take naproxen and Flexeril as prescribed. Do not operate heavy machinery while taking Flexeril due to sedation Prescriptions: Cyclobenzaprine [Flexeril] 10 mg PO QHS PRN #10 tablet PRN Reason: Muscle Spasm Naproxen 500 mg PO Q12H PRN #12 tablet PRN Reason: Pain , Severe (7-10) Referrals: PRIMARY CAREMD [Referring] - 3-5 Days JESUS MILLER MD [Staff Physician] - 3-5 Days Time of Disposition: 19:01
== END 2020-11-26 19:15 | disposition home or self-care (01) ==
LOC: ED 14:04
DX: S39.012A Strain of muscle, fascia and tendon of lower back, initial encounter (principal); K57.92 Diverticulitis of intestine, part unspecified, without perforation or abscess without bleeding; Z98.890 Other specified postprocedural states; Z88.6 Allergy status to analgesic agent; X58.XXXA Exposure to other specified factors, initial encounter; Y93.89 Activity, other specified; Y92.89 Other specified places as the place of occurrence of the external cause; Y99.8 Other external cause status
CPT/HCPCS: 81001; 81025; 99283; J7512

== ENCOUNTER 2021-10-23 22:59 | Emergency (ER) | payer SELFPAY ==
[2021-10-23 23:12] VITALS: BP 134/98
[2021-10-24] MEDS ORDERED: traMADol 50 MG TAB PO ONE (08:03)
--- NOTE | 2021-10-24 09:05 | Event Note ---
ED Screening Note ED Screening Note: to er with right arm pain sp fall swelling noted demanding narcotic pain med This initial assessment/diagnostic orders/clinical plan/treatment(s) is/are subject to change based on patients health status, clinical progression and re- assessment by fellow clinical providers in the ED. Further treatment and workup at subsequent clinical providers discretion. Patient/guardian urged not to elope from the ED as their condition may be serious if not clinically assessed and managed. Initial orders include: xr
--- NOTE | 2021-10-24 09:08 | Emergency Department Report ---
ED Upper Extremity Inj HPI - General Chief Complaint: Extremity Injury, Upper Stated Complaint: RIGHT ARM PAIN Time Seen by Provider: 10/24/21 08:01 Source: EMS Mode of arrival: Ambulatory Limitations: No Limitations - History of Present Illness Initial Comments: 41 YO COMES TO ER CO R ARM PAIN SP FALL SWELLING JUST DISTAL TO ELBOW DEMANDING STRONG PAIN PILL REFUSES MOTRIN/TYLENOL HAS CHILD WITH HER MD Complaint: Injury to:: right -: Sudden, hour(s) Improves With: none Worsens With: movement of extremity Context: fall Associated Symptoms: denies other symptoms - Related Data Previous Rx's Medication Instructions Recorded Last Taken Type Promethazine [Phenergan TAB] 25 mg PO Q6HR PRN #14 tab 01/10/15 Unknown Rx oxyCODONE /ACETAMINOPHEN [Percocet 1 tab PO Q6HR PRN #15 tablet 01/10/15 Unknown Rx 5/325] Ciprofloxacin HCl [Ciprofloxacin 500 mg PO BID #20 tablet 05/23/17 Unknown Rx TAB] Hycodan Cough Syrup 5 ml PO BID PRN #100 ml 05/23/17 Unknown Rx Ondansetron [Zofran Odt] 4 mg PO Q8HR PRN #20 tab.rapdis 05/23/17 Unknown Rx metroNIDAZOLE [Flagyl TAB] 500 mg PO TID #30 tab 05/23/17 Unknown Rx Ciprofloxacin HCl [Cipro] 500 mg PO BID #14 tablet 07/15/18 Unknown Rx traMADoL [Ultram 50 MG tab] 50 mg PO Q6HR PRN #12 tablet 07/15/18 Unknown Rx Cyclobenzaprine [Flexeril] 10 mg PO QHS PRN #10 tablet 11/26/20 Unknown Rx Naproxen 500 mg PO Q12H PRN #12 tablet 11/26/20 Unknown Rx Allergies Allergy/AdvReac Type Severity Reaction Status Date / Time ketorolac [From Toradol] Allergy Unknown Verified 07/15/18 12:17 ED Review of Systems ROS: Stated complaint: RIGHT ARM PAIN Other details as noted in HPI Comment: All other systems reviewed and negative ED Past Medical Hx - Past Medical History Previous Medical History?: Yes Additional medical history: C-DIFF, diverticulitis - Surgical History Past Surgical History?: Yes Additional Surgical History: D & C, polyps removed - Family History Family history: no significant - Social History Smoking Status: Never Smoker Substance Use Type: None - Medications Home Medications: Home Medications Medication Instructions Recorded Confirmed Last Taken Type Promethazine [Phenergan TAB] 25 mg PO Q6HR PRN #14 tab 01/10/15 Unknown Rx oxyCODONE /ACETAMINOPHEN [Percocet 1 tab PO Q6HR PRN #15 tablet 01/10/15 Unknown Rx 5/325] Ciprofloxacin HCl [Ciprofloxacin 500 mg PO BID #20 tablet 05/23/17 Unknown Rx TAB] Hycodan Cough Syrup 5 ml PO BID PRN #100 ml 05/23/17 Unknown Rx Ondansetron [Zofran Odt] 4 mg PO Q8HR PRN #20 tab.rapdis 05/23/17 Unknown Rx metroNIDAZOLE [Flagyl TAB] 500 mg PO TID #30 tab 05/23/17 Unknown Rx Ciprofloxacin HCl [Cipro] 500 mg PO BID #14 tablet 07/15/18 Unknown Rx traMADoL [Ultram 50 MG tab] 50 mg PO Q6HR PRN #12 tablet 07/15/18 Unknown Rx Cyclobenzaprine [Flexeril] 10 mg PO QHS PRN #10 tablet 11/26/20 Unknown Rx Naproxen 500 mg PO Q12H PRN #12 tablet 11/26/20 Unknown Rx ED Physical Exam - General Limitations: No Limitations - Expanded Upper Extremity Exam Right Elbow exam: Present: swelling Forearm Wrist exam: Present: tenderness ED Course Vital Signs 10/23/21 23:07 Temperature 98.6 F Pulse Rate 92 H Respiratory 20 Rate Blood Pressure 134/98 O2 Sat by Pulse 100 Oximetry ED Medical Decision Making - Medical Decision Making LEFT PRIOR TO XRAY Critical care attestation.: If time is entered above; I have spent that time in minutes in the direct care of this critically ill patient, excluding procedure time. ED Disposition Clinical Impression: Arm pain Disposition: 07 LEFT AWOL/ELOPED Is pt being admited?: No Does the pt Need Aspirin: No Condition: Stable Time of Disposition: 09:07
== END 2021-10-24 09:05 | disposition left against medical advice (07) ==
LOC: ED 22:59
DX: M79.601 Pain in right arm (principal); Z91.09 Other allergy status, other than to drugs and biological substances; Z79.899 Other long term (current) drug therapy
CPT/HCPCS: 99282

== ENCOUNTER 2021-12-22 12:08 | Inpatient (IN) | payer SELFPAY ==
[2021-12-22 20:12] LABS: Basophils # (Auto) 0.1 K/mm3 (0.0-0.1); Basophils % (Auto) 1.3 % (0.0-1.8); Eosinophils # (Auto) 0.4 K/mm3 (0.0-0.4); Eosinophils % (Auto) 8.6 % (0.0-4.3); Hematocrit 36.8 % (30.3-42.9); Hemoglobin 12.7 gm/dl (10.1-14.3); Lymphocytes # (Auto) 1.1 K/mm3 (1.2-5.4); Lymphocytes % (Auto) 26.5 % (13.4-35.0); Mean Corpuscular HGB Conc 35 % (30-34); Mean Corpuscular Volume 97 fl (79-97); Monocytes # (Auto) 0.6 K/mm3 (0.0-0.8); Monocytes % (Auto) 13.9 % (0.0-7.3); Platelet Count 222 K/mm3 (140-440); Red Blood Count 3.81 M/mm3 (3.65-5.03); Red Cell Distribution Width 13.4 % (13.2-15.2)
[2021-12-22 20:32] LABS: Alanine Aminotransferase 15 units/L (7-56); Albumin 4.2 g/dL (3.9-5); BUN/Creatinine Ratio 18; Blood Urea Nitrogen 18 mg/dL (7-17); Calcium 8.7 mg/dL (8.4-10.2); Hemolysis Index 17
[2021-12-22 20:41] LABS: Bilirubin,Direct < 0.2 mg/dL (0-0.2)
[2021-12-22] MEDS ORDERED: MORPHINE 4 MG/1 ML INJ IV ONE ×2 (21:24→23:45)
[2021-12-22] MEDS ORDERED: ONDANSETRON 4 MG/2 ML INJ IV ONE (21:24)
[2021-12-22 21:38] LABS: Color,Urine Straw (Yellow)
[2021-12-22 21:44] LABS: WBC,Urine < 1.0 /HPF (0.0-6.0)
--- NOTE | 2021-12-22 22:17 | XRay Report ---
LEFT FOREARM 2 VIEW(S) INDICATION / CLINICAL INFORMATION: Injury/pain COMPARISON: None available. FINDINGS: BONES / JOINT(S): No acute fracture or subluxation. No significant arthritis. SOFT TISSUES: No significant abnormality. ADDITIONAL FINDINGS: None. IMPRESSION: 1. No acute findings. Signer Name: Edward Bai MD Signed: 12/22/2021 10:13 PM Workstation Name: [email or web address]
[2021-12-22 22:21] LABS: HCG Qualitative,Urine Negative (Negative)
--- NOTE | 2021-12-22 23:50 | Emergency Department Report ---
<CÉSAR RAHMAN - Last Filed: 12/22/21 23:50> ED Abdominal Pain HPI - General Chief Complaint: Abdominal Pain Stated Complaint: CHEST PAIN Time Seen by Provider: 12/22/21 19:22 Source: patient Mode of arrival: Ambulatory Limitations: No Limitations - History of Present Illness Initial Comments: Patient is a 41-year-old female with history of diverticulitis presenting to ED with complaint of left lower quadrant pain for the past few weeks. Also reports left jaw swelling and left forearm pain that began around the same time after a fall while on a bus. Severity scale (0 -10): 7 - Related Data Previous Rx's Medication Instructions Recorded Last Taken Type Promethazine [Phenergan TAB] 25 mg PO Q6HR PRN #14 tab 01/10/15 Unknown Rx oxyCODONE /ACETAMINOPHEN [Percocet 1 tab PO Q6HR PRN #15 tablet 01/10/15 Unknown Rx 5/325] Ciprofloxacin HCl [Ciprofloxacin 500 mg PO BID #20 tablet 05/23/17 Unknown Rx TAB] Hycodan Cough Syrup 5 ml PO BID PRN #100 ml 05/23/17 Unknown Rx Ondansetron [Zofran Odt] 4 mg PO Q8HR PRN #20 tab.rapdis 05/23/17 Unknown Rx metroNIDAZOLE [Flagyl TAB] 500 mg PO TID #30 tab 05/23/17 Unknown Rx Ciprofloxacin HCl [Cipro] 500 mg PO BID #14 tablet 07/15/18 Unknown Rx traMADoL [Ultram 50 MG tab] 50 mg PO Q6HR PRN #12 tablet 07/15/18 Unknown Rx Cyclobenzaprine [Flexeril] 10 mg PO QHS PRN #10 tablet 11/26/20 Unknown Rx Naproxen 500 mg PO Q12H PRN #12 tablet 11/26/20 Unknown Rx Allergies Allergy/AdvReac Type Severity Reaction Status Date / Time ketorolac [From Toradol] Allergy Unknown Verified 12/22/21 13:03 ED Review of Systems Constitutional: denies: chills, fever Respiratory: denies: cough, shortness of breath, wheezing Cardiovascular: denies: chest pain, palpitations Gastrointestinal: abdominal pain. denies: nausea, vomiting Genitourinary: denies: urgency, dysuria, discharge Musculoskeletal: denies: back pain, joint swelling, arthralgia Skin: denies: rash, lesions Neurological: denies: headache, weakness, paresthesias Psychiatric: denies: anxiety, depression ED Past Medical Hx - Past Medical History Additional medical history: C-DIFF, diverticulitis - Surgical History Additional Surgical History: D & C, polyps removed - Social History Smoking Status: Never Smoker Substance Use Type: None - Medications Home Medications: Home Medications Medication Instructions Recorded Confirmed Last Taken Type Promethazine [Phenergan TAB] 25 mg PO Q6HR PRN #14 tab 01/10/15 Unknown Rx oxyCODONE /ACETAMINOPHEN [Percocet 1 tab PO Q6HR PRN #15 tablet 01/10/15 Unknown Rx 5/325] Ciprofloxacin HCl [Ciprofloxacin 500 mg PO BID #20 tablet 05/23/17 Unknown Rx TAB] Hycodan Cough Syrup 5 ml PO BID PRN #100 ml 05/23/17 Unknown Rx Ondansetron [Zofran Odt] 4 mg PO Q8HR PRN #20 tab.rapdis 05/23/17 Unknown Rx metroNIDAZOLE [Flagyl TAB] 500 mg PO TID #30 tab 05/23/17 Unknown Rx Ciprofloxacin HCl [Cipro] 500 mg PO BID #14 tablet 07/15/18 Unknown Rx traMADoL [Ultram 50 MG tab] 50 mg PO Q6HR PRN #12 tablet 07/15/18 Unknown Rx Cyclobenzaprine [Flexeril] 10 mg PO QHS PRN #10 tablet 11/26/20 Unknown Rx Naproxen 500 mg PO Q12H PRN #12 tablet 11/26/20 Unknown Rx ED Physical Exam - General Limitations: No Limitations General appearance: alert, in no apparent distress - Head Head exam: Present: atraumatic, normocephalic - ENT ENT exam: Present: other (Mild swelling to left jaw) - Respiratory Respiratory exam: Present: normal lung sounds bilaterally. Absent: respiratory distress - Cardiovascular Cardiovascular Exam: Present: regular rate, normal rhythm, normal heart sounds - GI/Abdominal GI/Abdominal exam: Present: soft, tenderness (Mild tenderness in left lower quadrant). Absent: distended - Rectal Rectal exam: Present: deferred - Neurological Exam Neurological exam: Present: alert, oriented X3 - Psychiatric Psychiatric exam: Present: normal affect, normal mood - Skin Skin exam: Present: warm, dry, intact, normal color ED Medical Decision Making - Lab Data Result diagrams: 12/22/21 19:30 12/22/21 19:30 - Medical Decision Making CBC, CMP and UA unremarkable. X-ray of left forearm is unremarkable. CT head and abdomen pelvis are pending. Signed out at shift change to for follow-up imaging and disposition. ED Disposition Clinical Impression: Left lower quadrant abdominal pain, Swelling of left side of face, Small bowel obstruction Disposition: ADMITTED INPATIENT Condition: Stable Instructions: Abdominal Pain (ED) Referrals: JESUS MILLER MD [Primary Care Provider] - 3-5 Days <VERITO LOPEZ - Last Filed: 12/23/21 04:24> ED Review of Systems ROS: Stated complaint: CHEST PAIN Other details as noted in HPI ED Course Vital Signs 12/22/21 12/22/21 13:01 20:59 Temperature 98.8 F Pulse Rate 70 58 L Respiratory 18 12 Rate Blood Pressure 145/72 140/91 [Left] O2 Sat by Pulse 100 100 Oximetry - Reevaluation(s) Reevaluation #1: 12/23/21 03:56 pt signed out to me while waiting for CT abd/pel -- which resulted to be mid mild SBO -- FINDINGS: Lung bases clear. No pneumoperitoneum. No significant abdominal wall herniation. No obvious lymphadenopathy. No free fluid. Gallbladder and bile ducts normal. Mild pancreatic ductal prominence at just over 4 mm is stable. No pancreatic inflammation or pancreatic masses seen. No abdominal masses noted. No urinary tract calculi or evidence of obstruction. Appendix not visualized. Mild colonic diverticulosis without evidence of diverticulitis. Proximal small bowel loops are mildly dilated with distal loops normal in caliber. Scattered air-fluid levels are seen in the dilated loops. No definite wall thickening is seen. IMPRESSION: Findings suggesting mid small bowel mild obstructive change - Consultations Consultation #1: 12/23/21 04:23 Dr Zavala consulted who agreed to see patient on the floor in the morning Consultation #2: 12/23/21 04:23 Dr Rosenberg consulted who accept pt for further evaluation and treatment ED Medical Decision Making - Lab Data Result diagrams: 12/22/21 19:30 12/22/21 19:30 - Radiology Data FINDINGS: Lung bases clear. No pneumoperitoneum. No significant abdominal wall herniation. No obvious lymphadenopathy. No free fluid. Gallbladder and bile ducts normal. Mild pancreatic ductal prominence at just over 4 mm is stable. No pancreatic inflammation or pancreatic masses seen. No abdominal masses noted. No urinary tract calculi or evidence of obstruction. Appendix not visualized. Mild colonic diverticulosis without evidence of diverticulitis. Proximal small bowel loops are mildly dilated with distal loops normal in caliber. Scattered air-fluid levels are seen in the dilated loops. No definite wall thickening is seen. IMPRESSION: Findings suggesting mid small bowel mild obstructive change Critical care attestation.: If time is entered above; I have spent that time in minutes in the direct care of this critically ill patient, excluding procedure time. ED Disposition Is pt being admited?: Yes Does the pt Need Aspirin: No
--- NOTE | 2021-12-23 00:54 | Cat Scan Report ---
CT FACE HISTORY: Jaw pain/swelling COMPARISON: None. TECHNIQUE: Axial images of the face were obtained. Coronal reformats were generated. All CT scans at this location are performed using CT dose reduction for ALARA by means of automated exposure control . CONTRAST: None. FINDINGS: Facial soft tissues: No significant abnormalities. Facial bones: No fracture or other significant abnormality. Paranasal sinuses: Moderate mucosal thickening is seen in the ethmoid sinuses and right maxillary sin us. No air-fluid levels are seen. Orbits: No significant abnormality. Visualized images of the intracranial space: No significant abnormality. Additional findings: None. IMPRESSION: No significant acute facial abnormality. Signer Name: Arvind Rain MD Signed: 12/23/2021 12:49 AM Workstation Name: [id number]
--- NOTE | 2021-12-23 00:58 | Cat Scan Report ---
CT ABDOMEN AND PELVIS WITHOUT CONTRAST INDICATION: LLQ pain CONTRAST: Without IV COMPARISON: 07/15/[address] scans at this location are performed using CT dose reduction for ALARA by means of automated e xposure control. FINDINGS: Lung bases clear. No pneumoperitoneum. No significant abdominal wall herniation. No obvious lymphadenopathy. No free fluid. Gallbladder and bile ducts normal. Mild pancreatic ductal prominence at just over 4 mm is stable. No pancreatic inflammation or pancreatic masses seen. No abdominal mass es noted. No urinary tract calculi or evidence of obstruction. Appendix not visualized. Mild colonic diverticulosis without evidence of diverticulitis. Proximal sma ll bowel loops are mildly dilated with distal loops normal in caliber. Scattered air-fluid levels are seen in the dilated loops. No definite wall thickening is seen. IMPRESSION: Findings suggesting mid small bowel mild obstructive change Signer Name: Arvind Rain MD Signed: 12/23/2021 12:54 AM Workstation Name: [id number]
[2021-12-23] MEDS ORDERED: diphenhydrAMINE 50 MG/ML VIAL IV ONE ×2 (01:05→05:13)
[2021-12-23] MEDS ORDERED: ONDANSETRON 4 MG/2 ML INJ IV PRN ×2 (04:28→04:41)
[2021-12-23] MEDS ORDERED: ACETAMINOPHEN 325 MG TAB PO PRN ×2 (04:28→04:41)
[2021-12-23] MEDS ORDERED: MORPHINE 2 MG/1 ML INJ IV PRN ×2 (04:28→04:41)
[2021-12-23] MEDS ORDERED: ALBUTEROL 2.5 MG/3 ML NEBU IH PRN (04:41)
--- NOTE | 2021-12-23 04:48 | History and Physical Report ---
History of Present Illness Date of examination: 12/23/21 Date of admission: 12/23/21 Chief complaint: Abdominal pain History of present illness: 41-year-old female with history of diverticulitis was brought to the emergency room because of left lower quadrant pain for the past few weeks. Pain in the mid abdomen 10/26. Also patient complaining of left jaw swelling and left forearm pain that began around the same time after a fall while on a bus. In the emergency room CBC, CMP and UA unremarkable. X-ray of left forearm is unremarkable. CT scan of the abdomen pelvis showed Findings suggesting mid small bowel mild obstructive change . Case discussed with on-call surgeon Dr. Zavala Will see the patient in consultation. Past History Past Medical History: other (Diverticulitis, C. difficile colitis) Past Surgical History: Other (D & C, polyps removed) Social history: no significant social history Family history: hypertension Medications and Allergies Allergies Allergy/AdvReac Type Severity Reaction Status Date / Time ketorolac [From Toradol] Allergy Unknown Verified 12/22/21 13:03 Home Medications Medication Instructions Recorded Confirmed Last Taken Type Promethazine [Phenergan TAB] 25 mg PO Q6HR PRN #14 tab 01/10/15 Unknown Rx oxyCODONE /ACETAMINOPHEN [Percocet 1 tab PO Q6HR PRN #15 tablet 01/10/15 Unknown Rx 5/325] Ciprofloxacin HCl [Ciprofloxacin 500 mg PO BID #20 tablet 05/23/17 Unknown Rx TAB] Hycodan Cough Syrup 5 ml PO BID PRN #100 ml 05/23/17 Unknown Rx Ondansetron [Zofran Odt] 4 mg PO Q8HR PRN #20 tab.rapdis 05/23/17 Unknown Rx metroNIDAZOLE [Flagyl TAB] 500 mg PO TID #30 tab 05/23/17 Unknown Rx Ciprofloxacin HCl [Cipro] 500 mg PO BID #14 tablet 07/15/18 Unknown Rx traMADoL [Ultram 50 MG tab] 50 mg PO Q6HR PRN #12 tablet 07/15/18 Unknown Rx Cyclobenzaprine [Flexeril] 10 mg PO QHS PRN #10 tablet 11/26/20 Unknown Rx Naproxen 500 mg PO Q12H PRN #12 tablet 11/26/20 Unknown Rx Active Meds: Active Medications Acetaminophen (Acetaminophen 325 Mg Tab) 650 mg PO Q4H PRN PRN Reason: Pain MILD(1-3)/Fever >100.5/DESIR Morphine Sulfate (Morphine 2 Mg/1 Ml Inj) 2 mg IV Q4H PRN PRN Reason: Pain, Moderate (4-6) Ondansetron HCl (Ondansetron 4 Mg/2 Ml Inj) 4 mg IV Q8H PRN PRN Reason: Nausea And Vomiting Sodium Chloride (Sodium Chloride 0.9% 10 Ml Flush Syringe) 10 ml IV BID MERI Sodium Chloride (Sodium Chloride 0.9% 10 Ml Flush Syringe) 10 ml IV PRN PRN PRN Reason: LINE FLUSH Review of Systems All systems: negative Gastrointestinal: abdominal pain Exam - Constitutional Vitals: Temp Pulse Resp BP Pulse Ox 98.8 F 58 L 12 140/91 100 12/22/21 13:01 12/22/21 20:59 12/22/21 20:59 12/22/21 20:59 12/22/21 20:59 General appearance: Present: no acute distress, well-nourished - EENT Eyes: Present: PERRL ENT: hearing intact, clear oral mucosa - Neck Neck: Present: supple, normal ROM - Respiratory Respiratory effort: normal Respiratory: bilateral: CTA - Cardiovascular Heart Sounds: Present: S1 & S2. Absent: rub, click - Extremities Extremities: pulses symmetrical, No edema Peripheral Pulses: within normal limits - Abdominal General gastrointestinal: Present: soft, non-tender, non-distended, normal bowel sounds Female genitourinary: Present: normal - Integumentary Integumentary: Present: clear, warm, dry - Musculoskeletal Musculoskeletal: gait normal, strength equal bilaterally - Psychiatric Psychiatric: appropriate mood/affect, intact judgment & insight - Neurologic Neurologic: CNII-XII intact, moves all extremities Results - Labs CBC & Chem 7: 12/22/21 19:30 12/22/21 19:30 Labs: Laboratory Last Values WBC 4.3 K/mm3 (4.5-11.0) L 12/22/21 19:30 RBC 3.81 M/mm3 (3.65-5.03) 12/22/21 19:30 Hgb 12.7 gm/dl (10.1-14.3) 12/22/21 19:30 Hct 36.8 % (30.3-42.9) 12/22/21 19:30 MCV 97 fl (79-97) 12/22/21 19:30 MCH 33 pg (28-32) H 12/22/21 19:30 MCHC 35 % (30-34) H 12/22/21 19:30 RDW 13.4 % (13.2-15.2) 12/22/21 19:30 Plt Count 222 K/mm3 (140-440) 12/22/21 19:30 Lymph % (Auto) 26.5 % (13.4-35.0) 12/22/21 19:30 [place] % (Auto) 13.9 % (0.0-7.3) H 12/22/21 19:30 Eos % (Auto) 8.6 % (0.0-4.3) H 12/22/21: Baso % (Auto) 1.3 % (0.0-1.8) 12/22/21 19:30 Lymph # (Auto) 1.1 K/mm3 (1.2-5.4) L 12/22/21 19:30 [place] # (Auto) 0.6 K/mm3 (0.0-0.8) 12/22/21 19:30 Eos # (Auto) 0.4 K/mm3 (0.0-0.4) 12/22/21 19:30 Baso # (Auto) 0.1 K/mm3 (0.0-0.1) 12/22/21 19:30 Seg Neutrophils % 49.7 % (40.0-70.0) 12/22/21 19: Seg Neutrophils # 2.1 K/mm3 (1.8-7.7) 12/22/21 19:30 Sodium 137 mmol/L (137-145) 12/22/21 19:30 Potassium 3.7 mmol/L (3.6-5.0) 12/22/21 19:30 Chloride 101.6 mmol/L (98-107) 12/22/21 19:30 Carbon Dioxide 23 mmol/L (22-30) 12/22/21 19:30 Anion Gap 16 mmol/L 12/22/21 19:30 BUN 18 mg/dL (7-17) H 12/22/21 19:30 Creatinine 1.0 mg/dL (0.6-1.2) 12/22/21 19:30 Estimated GFR > 60 ml/min 12/22/21 19:30 BUN/Creatinine Ratio 18 % 12/22/21 19:30 Glucose 108 mg/dL (65-100) H 12/22/21 19:30 Calcium 8.7 mg/dL (8.4-10.2) 12/22/21 19:30 Total Bilirubin < 0.20 mg/dL (0.1-1.2) 12/22/21 19:30 Direct Bilirubin < 0.2 mg/dL (0-0.2) 12/22/21 19:30 Indirect Bilirubin 0.0 mg/dL 12/22/21 19:30 AST 19 units/L (5-40) 12/22/21 19:30 ALT 15 units/L (7-56) 12/22/21 19:30 Alkaline Phosphatase 86 units/L (35-129) 12/22/21 19:30 Total Protein 6.4 g/dL (6.3-8.2) 12/22/21 19:30 Albumin 4.2 g/dL (3.9-5) 12/22/21 19:30 Albumin/Globulin Ratio 1.9 % 12/22/21 19:30 HCG, Quant < 2 mIU/mL (0-4) 12/22/21 22:21 Urine Color Straw (Yellow) 12/22/21 21: Urine Turbidity Clear (Clear) 12/22/21: Specific [place] (Man) 1.015 (1.003-1.030) 12/22/21 21: Ur Protein (Man) <30 mg dl mg/dL (Negative) 12/22/21: Ur Ketones (Man) Negative (Negative) 12/22/21 21: Ur Nitrite (Man) Negative (Negative) 12/22/21 21: Urine Bilirubin (Man) Negative (Negative) 12/22/21: Leukocyte Esterase (Man) Negative (Negative) 12/22/21: Urine WBC (Auto) < 1.0 /HPF (0.0-6.0) 12/22/21: Urine RBC (Auto) 27.0 /HPF (0.0-6.0) 12/22/21 21: U Epithel Cells (Auto) < 1.0 /HPF (0-13.0) 12/22/21 21:27 Urine RBC (Manual) 3+ (Negative) 12/22/21 21:27 Urine HCG, Qual Negative (Negative) 12/22/21 Unknown - Imaging and Cardiology CT scan - abdomen: report reviewed Assessment and Plan VTE prophylaxis?: Mechanical Plan of care discussed with patient/family: Yes - Patient Problems (1) Small bowel obstruction Current Visit: Yes Status: Acute Plan to address problem: Admit the patient to the medical floor. NPO. D5 half-normal saline at the rate of 100 cc/h. Will consult on-call surgeon Dr. Zavala to see the patient for further evaluation and treatment. Continue home medication. Recheck CBC BMP in the morning (2) Diverticulitis Current Visit: Yes Status: Acute Plan to address problem: Patient has a history of diverticulitis. We will continue the Cipro 500 p.o. twice daily and metronidazole 500 mg p.o. every 8 hours home medication. Surgery evaluation (3) Left lower quadrant abdominal pain Current Visit: Yes Status: Acute Plan to address problem: NPO. D5 half-normal saline at the rate of 100 cc/h. Morphine 2 mg IV every 4 hours as needed .will consult on-call surgeon Dr. Zavala to see the patient for further evaluation and treatment. Continue home medication. Recheck CBC BMP in the morning (4) Swelling of left side of face Current Visit: Yes Status: Acute Plan to address problem: CT scan of the face shows no significant acute facial abnormality (5) DVT prophylaxis Current Visit: Yes Status: Acute Plan to address problem: SCD for DVT prophylaxis. Pepcid 20 mg IV every 12 hours for GI prophylaxis. Patient is a full code
[2021-12-23] MEDS ORDERED: D5W/0.45% NACL 1,000 ML IV SCH (05:00)
[2021-12-23] MEDS: MORPHINE 4 MG/1 ML INJ IV PRN ×2 (05:15→08:20)
[2021-12-23] MEDS ORDERED: metroNIDAZOLE 500 MG TAB PO SCH ×2 (06:00→14:00)
[2021-12-23] MEDS: IPRATROPIUM/ALBUTEROL SULFATE 3 ML AMPUL.NEB IH SCH ×2 (08:16→14:14)
[2021-12-23] MEDS: FAMOTIDINE 20 MG/2 ML INJ IV SCH ×2 (09:08→21:16)
--- NOTE | 2021-12-23 09:34 | Consultation ---
History of Present Illness Consult date: 12/23/21 Reason for consult: abdominal pain - History of present illness History of present illness: Patient is a 41-year-old female with history of diverticulitis presenting to ED with complaint of left lower quadrant pain for the past few weeks. Also reports left jaw swelling and left forearm pain that began around the same time after a fall while on a bus. CT of [place] with mild signs of sbo. Past History Past Medical History: other (Diverticulitis, C. difficile colitis) Past Surgical History: Other (D & C, polyps removed) Social history: no significant social history Family history: hypertension Medications and Allergies Allergies Allergy/AdvReac Type Severity Reaction Status Date / Time ketorolac [From Toradol] Allergy Unknown Verified 12/22/21 13:03 Home Medications Medication Instructions Recorded Confirmed Last Taken Type Promethazine [Phenergan TAB] 25 mg PO Q6HR PRN #14 tab 01/10/15 12/24/21 Unknown Rx oxyCODONE /ACETAMINOPHEN [Percocet 1 tab PO Q6HR PRN #15 tablet 01/10/15 12/24/21 Unknown Rx 5/325] Ciprofloxacin HCl [Ciprofloxacin 500 mg PO BID #20 tablet 05/23/17 12/24/21 Unknown Rx TAB] Hycodan Cough Syrup 5 ml PO BID PRN #100 ml 05/23/17 12/24/21 Unknown Rx Ondansetron [Zofran Odt] 4 mg PO Q8HR PRN #20 tab.rapdis 05/23/17 12/24/21 Unknown Rx metroNIDAZOLE [Flagyl TAB] 500 mg PO TID #30 tab 05/23/17 12/24/21 Unknown Rx Ciprofloxacin HCl [Cipro] 500 mg PO BID #14 tablet 07/15/18 12/24/21 Unknown Rx traMADoL [Ultram 50 MG tab] 50 mg PO Q6HR PRN #12 tablet 07/15/18 12/24/21 U nknown Rx Cyclobenzaprine [Flexeril] 10 mg PO QHS PRN #10 tablet 11/26/20 12/24/21 Unknown Rx Naproxen 500 mg PO Q12H PRN #12 tablet 11/26/20 12/24/21 Unknown Rx Active Meds: Active Medications Acetaminophen (Acetaminophen 325 Mg Tab) 650 mg PO Q4H PRN PRN Reason: Pain MILD(1-3)/Fever >100.5/DESIR Albuterol (Albuterol 2.5 Mg/3 Ml Nebu) 2.5 mg IH Q3HRT PRN PRN Reason: Shortness Of Breath Albuterol/Ipratropium (Ipratropium/Albuterol Sulfate 3 Ml Ampul.Neb) 1 ampul IH Q6HRT [facility] Last Admin: 12/23/21 08:16 Dose: 1 ampul Famotidine (Famotidine 20 Mg/2 Ml Inj) 20 mg IV BID [facility] Last Admin: 12/23/21 09:08 Dose: 20 mg Dextrose/Sodium Chloride (D5/0.45ns) 1,000 mls @ 100 mls/hr IV DIRECT [facility] Last Admin: 12/23/21 06:34 Dose: 100 mls/hr Morphine Sulfate (Morphine 2 Mg/1 Ml Inj) 2 mg IV Q4H PRN PRN Reason: Pain, Moderate (4-6) Morphine Sulfate (Morphine 4 Mg/1 Ml Inj) 4 mg IV Q4H PRN PRN Reason: Pain , Severe (7-10) Last Admin: 12/23/21 08:20 Dose: 4 mg Ondansetron HCl (Ondansetron 4 Mg/2 Ml Inj) 4 mg IV Q8H PRN PRN Reason: Nausea And Vomiting Sodium Chloride (Sodium Chloride 0.9% 10 Ml Flush Syringe) 10 ml IV PRN PRN PRN Reason: LINE FLUSH Sodium Chloride (Sodium Chloride 0.9% 10 Ml Flush Syringe) 10 ml IV BID [facility] Last Admin: 12/23/21 09:08 Dose: 10 ml Exam Vital Signs Temp Pulse Resp BP Pulse Ox 98.8 F 70 18 145/72 100 12/22/21 13:01 12/22/21 13:01 12/22/21 13:01 12/22/21 13:01 12/22/21 13:01 - General physical appearance Positive: well developed, no distress - Eyes Positive: PERRL - Neck Positive: no masses, no bruits, trachea midline - Respiratory Positive: normal expansion - Cardiovascular Rhythm: regular - Extremities Extremities: no ischemia, No edema - Abdomen Abdomen: Present: soft, bowel sounds normal. Absent: distended, masses, rebound, guarding - Neurologic Neurologic: alert and oriented to time, place and person, motor strength and sensation are grossly intact, CN II-XII intact Results - Labs 12/22/21 19:30 12/22/21 19:30 Abnormal lab results 12/22/21 12/22/21 Range/Units 19:30 19:30 WBC 4.3 L (4.5-11.0) K/mm3 MCH 33 H (28-32) pg MCHC 35 H (30-34) % [place] % (Auto) 13.9 H (0.0-7.3) % Eos % (Auto) 8.6 H (0.0-4.3) % Lymph # (Auto) 1.1 L (1.2-5.4) K/mm3 BUN 18 H (7-17) mg/dL Glucose 108 H (65-100) mg/dL Diabetes panel 12/22/21 Range/Units 19:30 Sodium 137 (137-145) mmol/L Potassium 3.7 (3.6-5.0) mmol/L Chloride 101.6 (98-107) mmol/L Carbon Dioxide 23 (22-30) mmol/L BUN 18 H (7-17) mg/dL Creatinine 1.0 (0.6-1.2) mg/dL Glucose 108 H (65-100) mg/dL Calcium 8.7 (8.4-10.2) mg/dL AST 19 (5-40) units/L ALT 15 (7-56) units/L Alkaline Phosphatase 86 (35-129) units/L Total Protein 6.4 (6.3-8.2) g/dL Albumin 4.2 (3.9-5) g/dL Calcium panel 12/22/21 Range/Units 19:30 Calcium 8.7 (8.4-10.2) mg/dL Albumin 4.2 (3.9-5) g/dL Pituitary panel 12/22/21 Range/Units 19:30 Sodium 137 (137-145) mmol/L Potassium 3.7 (3.6-5.0) mmol/L Chloride 101.6 (98-107) mmol/L Carbon Dioxide 23 (22-30) mmol/L BUN 18 H (7-17) mg/dL Creatinine 1.0 (0.6-1.2) mg/dL Glucose 108 H (65-100) mg/dL Calcium 8.7 (8.4-10.2) mg/dL Adrenal panel 12/22/21 Range/Units 19:30 Sodium 137 (137-145) mmol/L Potassium 3.7 (3.6-5.0) mmol/L Chloride 101.6 (98-107) mmol/L Carbon Dioxide 23 (22-30) mmol/L BUN 18 H (7-17) mg/dL Creatinine 1.0 (0.6-1.2) mg/dL Glucose 108 H (65-100) mg/dL Calcium 8.7 (8.4-10.2) mg/dL Total Bilirubin < 0.20 (0.1-1.2) mg/dL AST 19 (5-40) units/L ALT 15 (7-56) units/L Alkaline Phosphatase 86 (35-129) units/L Total Protein 6.4 (6.3-8.2) g/dL Albumin 4.2 (3.9-5) g/dL Assessment and Plan Images of the CAT scan and report are reviewed. Amount of small bowel distention is minimal to moderate. Patient is hungry this morning. She notes that her pain is located in the left flank. She has had a prior episode of C. difficile. Patient works in a alf. Patient has also been self- medicating with amoxicillin for swelling in the side of her face. She notes 5 BMs a day. Okay to advance diet at this time. Obtain stool for C. difficile. Begin p.o. antibiotics appropriate for C. difficile toxin colitis. We will continue to follow patient with you.
[2021-12-23] MEDS ORDERED: levoFLOXacin 500 MG TAB PO SCH (10:00)
[2021-12-23] MEDS: oxyCODONE /ACETAMINOPHEN 5-325MG TAB PO PRN ×3 (12:40→21:15)
--- NOTE | 2021-12-23 13:48 | Event Note ---
Date: 12/23/21 The patient was evaluated this morning, she was found to be hemodynamically stable. #Small bowel obstructionruled out #Possible C. difficile infection CT abdomen and pelvis initially revealed possible mild small bowel obstruction. General surgery consulted; appreciate recs. Patient restarted on clear liquid diet. Pending C. difficile PCR and ova and parasite. Discontinued Flagyl. Starting p.o. vancomycin 125 mg 4 times daily. C. difficile infection likely from patient self administering amoxicillin at home. #History of diverticulosis #Diverticulitisruled out Continue supportive management #Swelling of left face #Distant ground-level fall Unremarkable x-ray of left upper extremity and CT sinus/head Continue analgesics as needed #Coordination of CARE time: 30 minutes. Total visit time equals 30 or more minutes with greater than 50% spent [id number] on coordination of care and counseling. #Advanced care planning -Disease education conducted, care plan discussed, diagnoses discussed, prognosis discussed, and patient acknowledges understanding with care plan -Time: +30 min
[2021-12-23] MEDS: diphenhydrAMINE 25 MG CAP PO PRN ×2 (17:07→21:15)
[2021-12-23] MEDS: VANCOMYCIN 250 MG/10 ML ORAL LIQD PO SCH (17:08)
[2021-12-23] MEDS: NICOTINE 21 MG/24 HR PATCH TD SCH (21:34)
[2021-12-24] MEDS: VANCOMYCIN 250 MG/10 ML ORAL LIQD PO SCH ×5 (00:19→23:38)
[2021-12-24] MEDS: oxyCODONE /ACETAMINOPHEN 5-325MG TAB PO PRN ×4 (02:11→19:39)
[2021-12-24] MEDS: diphenhydrAMINE 25 MG CAP PO PRN ×3 (02:12→13:43)
[2021-12-24] MEDS: NICOTINE 21 MG/24 HR PATCH TD SCH (09:14)
[2021-12-24] MEDS: FAMOTIDINE 20 MG/2 ML INJ IV SCH (09:14)
--- NOTE | 2021-12-24 09:14 | Progress Note ---
Assessment and Plan Images of the CAT scan and report are reviewed. Amount of small bowel distention is minimal to moderate. Patient is hungry this morning. She notes that her pain is located in the left flank. She has had a prior episode of C. difficile. Patient works in a senior care. Patient has also been self- medicating with amoxicillin for swelling in the side of her face. She notes 5 BMs a day. Okay to advance diet at this time. Obtain stool for C. difficile. Begin p.o. antibiotics appropriate for C. difficile toxin colitis. Pt states that freq bm's have stopped. Last bm yesterday was solid. Left flank pain continues anjali is much better than on admission. We will continue to follow patient with you. Subjective Date of service: 12/24/21 Patient Reports: Positive: still having pain, pain is less, tolerating a regular diet Narrative: Pt states that freq bm's have stopped. Last bm yesterday was solid. Left flank pain continues anjali is much better than on admission. Objective Vital Signs - 12hr 12/23/21 12/23/21 21:30 22:00 Temperature 97.9 F Pulse Rate 64 Respiratory 18 Rate Blood Pressure 145/97 [Left] O2 Sat by Pulse 100 100 Oximetry - Labs 12/22/21 19:30 12/22/21 19:30
[2021-12-24 10:06] LABS: Basophils % (Auto) 1.1 % (0.0-1.8); Eosinophils # (Auto) 0.3 K/mm3 (0.0-0.4); Eosinophils % (Auto) 10.1 % (0.0-4.3); Hematocrit 37.9 % (30.3-42.9); Hemoglobin 12.5 gm/dl (10.1-14.3); Lymphocytes # (Auto) 0.9 K/mm3 (1.2-5.4); Lymphocytes % (Auto) 28.7 % (13.4-35.0); Mean Corpuscular HGB Conc 33 % (30-34); Mean Corpuscular Volume 98 fl (79-97); Monocytes # (Auto) 0.5 K/mm3 (0.0-0.8); Monocytes % (Auto) 14.5 % (0.0-7.3); Platelet Count 200 K/mm3 (140-440); Red Blood Count 3.85 M/mm3 (3.65-5.03); Red Cell Distribution Width 13.1 % (13.2-15.2)
[2021-12-24 10:27] LABS: Alanine Aminotransferase 56 units/L (7-56); Albumin 4.2 g/dL (3.9-5); BUN/Creatinine Ratio 11; Blood Urea Nitrogen 11 mg/dL (7-17); Calcium 8.8 mg/dL (8.4-10.2); Hemolysis Index 3
--- NOTE | 2021-12-24 11:57 | Progress Note ---
Assessment and Plan Assessment and plan: #Small bowel obstructionruled out #Possible C. difficile infection CT abdomen and pelvis initially revealed possible mild small bowel obstruction. General surgery consulted; appreciate recs. Diet increased to a regular diet. Pending C. difficile PCR and ova and parasite. Continue p.o. vancomycin 125 mg 4 times daily. Reaching out to pharmacy to determine if patient can obtain p.o. vancomycin upon discharge. C. difficile infection likely from patient self administering amoxicillin at home. Patient currently having solid bowel movements. Given long amoxicillin dosing at home, patient will be empirically treated for C. difficile. Patient counseled to stop taking amoxicillin at home unless prescribed by physician. Patient will follow-up with gastroenterology in outpatient setting to schedule a colonoscopy given her increased family risk of colon cancer. occults stools are not appropriate for inpatient utilization to determine if GI bleeding is present. Instead, a RACHEL (digital rectal exam) in addition to medical history should be utilized. #History of diverticulosis #Diverticulitisruled out Continue supportive management #Swelling of left face #Distant ground-level fall Unremarkable x-ray of left upper extremity and CT sinus/head Continue analgesics as needed #Advanced care planning -Disease education conducted, care plan discussed, diagnoses discussed, prognosis discussed, and patient acknowledges understanding with care plan -Time: +30 min #Discharge planning - Patient is pending improvement in abdominal pain + bowel movements - Case management has been made aware. - Discharge is tentatively 12/25/2021. Disposition Plan: Pending possible discharge home tomorrow Total Time Spent with Patient (Minutes): 45 minutes History Interval history: No acute events overnight. Hospitalist Physical - Constitutional Vitals: Temp Pulse Resp BP Pulse Ox 98.0 F 73 18 138/101 100 12/24/21 09:13 12/24/21 09:13 12/24/21 09:14 12/24/21 09:13 12/24/21 09:13 General appearance: Present: no acute distress, well-nourished - EENT Eyes: Present: PERRL, EOM intact ENT: hearing intact, clear oral mucosa, dentition normal - Neck Neck: Present: supple, normal ROM - Respiratory Respiratory effort: normal Respiratory: bilateral: CTA - Cardiovascular Rhythm: regular Heart Sounds: Present: S1 & S2 - Extremities Extremities: no ischemia, pulses intact, pulses symmetrical, No edema, normal temperature, normal color, Full ROM Peripheral Pulses: within normal limits - Abdominal General gastrointestinal: soft, tender, non-distended, normal bowel sounds Localized gastrointestinal: tender: LLQ - Integumentary Integumentary: Present: clear, warm, dry - Psychiatric Psychiatric: appropriate mood/affect, intact judgment & insight, memory intact, cooperative - Neurologic Neurologic: CNII-XII intact, moves all extremities - Allied Health Allied health notes reviewed: nursing HEART Score - HEART Score Troponin: Troponin T < 0.010 ng/mL (0.00-0.029) 12/23/21 08:02 Results - Labs CBC & Chem 7: 12/24/21 08:34 12/24/21 08:34 Labs: Laboratory Last Values WBC 3.3 K/mm3 (4.5-11.0) L 12/24/21 08:34 RBC 3.85 M/mm3 (3.65-5.03) 12/24/21 08:34 Hgb 12.5 gm/dl (10.1-14.3) 12/24/21 08:34 Hct 37.9 % (30.3-42.9) 12/24/21 08:34 MCV 98 fl (79-97) H 12/24/21 08:34 MCH 32 pg (28-32) 12/24/21 08:34 MCHC 33 % (30-34) 12/24/21 08:34 RDW 13.1 % (13.2-15.2) L 12/24/21 08:34 Plt Count 200 K/mm3 (140-440) 12/24/21 08:34 Lymph % (Auto) 28.7 % (13.4-35.0) 12/24/21 08:34 [place] % (Auto) 14.5 % (0.0-7.3) H 12/24/21 08:34 Eos % (Auto) 10.1 % (0.0-4.3) H 12/24/21 08:34 Baso % (Auto) 1.1 % (0.0-1.8) 12/24/21 08:34 Lymph # (Auto) 0.9 K/mm3 (1.2-5.4) L 12/24/21 08:34 [place] # (Auto) 0.5 K/mm3 (0.0-0.8) 12/24/21 08:34 Eos # (Auto) 0.3 K/mm3 (0.0-0.4) 12/24/21 08:34 Baso # (Auto) 0.0 K/mm3 (0.0-0.1) 12/24/21 08:34 Seg Neutrophils % 45.6 % (40.0-70.0) 12/24/21 08:34 Seg Neutrophils # 1.5 K/mm3 (1.8-7.7) L 12/24/21 08:34 Sodium 138 mmol/L (137-145) 12/24/21 08:34 Potassium 4.4 mmol/L (3.6-5.0) 12/24/21 08:34 Chloride 103.6 mmol/L (98-107) 12/24/21 08:34 Carbon Dioxide 27 mmol/L (22-30) 12/24/21 08:34 Anion Gap 12 mmol/L 12/24/21 08:34 BUN 11 mg/dL (7-17) 12/24/21 08:34 Creatinine 1.0 mg/dL (0.6-1.2) 12/24/21 08:34 Estimated GFR > 60 ml/min 12/24/21 08:34 BUN/Creatinine Ratio 11 % 12/24/21 08:34 Glucose 109 mg/dL (65-100) H 12/24/21 08:34 Calcium 8.8 mg/dL (8.4-10.2) 12/24/21 08:34 Total Bilirubin < 0.20 mg/dL (0.1-1.2) 12/24/21 08:34 Direct Bilirubin < 0.2 mg/dL (0-0.2) 12/22/21 19:30 Indirect Bilirubin 0.0 mg/dL 12/22/21 19:30 AST 56 units/L (5-40) H 12/24/21 08:34 ALT 56 units/L (7-56) 12/24/21 08:34 Alkaline Phosphatase 68 units/L (35-129) 12/24/21 08:34 Troponin T < 0.010 ng/mL (0.00-0.029) 12/23/21 08:02 Total Protein 6.2 g/dL (6.3-8.2) L 12/24/21 08:34 Albumin 4.2 g/dL (3.9-5) 12/24/21 08:34 Albumin/Globulin Ratio 2.1 % 12/24/21 08:34 HCG, Quant < 2 mIU/mL (0-4) 12/22/21 22:21 Urine Color Straw (Yellow) 12/22/21 21: Urine Turbidity Clear (Clear) 12/22/21 21: Specific [place] (Man) 1.015 (1.003-1.030) 12/22/21 21: Ur Protein (Man) <30 mg dl mg/dL (Negative) 12/22/21 21: Ur Ketones (Man) Negative (Negative) 12/22/21 21: Ur Nitrite (Man) Negative (Negative) 12/22/21 21: Urine Bilirubin (Man) Negative (Negative) 12/22/21 21: Leukocyte Esterase (Man) Negative (Negative) 12/22/21 21:27 Urine WBC (Auto) < 1.0 /HPF (0.0-6.0) 12/22/21 21: Urine RBC (Auto) 27.0 /HPF (0.0-6.0) 12/22/21 21: U Epithel Cells (Auto) < 1.0 /HPF (0-13.0) 12/22/21 21:27 Urine RBC (Manual) 3+ (Negative) 12/22/21 21: Urine HCG, Qual Negative (Negative) 12/22/21 Unknown Gonzalez/IV: Voiding Method Toilet Active Medications - Current Medications Current Medications: Generic Name Dose Route Start Last Admin Trade Name Freq PRN Reason Stop Dose Admin Acetaminophen 650 mg 12/23/21 04:28 Acetaminophen 325 Mg Tab PO Q4H PRN Pain MILD(1-3)/Fever >100.5/DESIR Hydrocodone Bitart/Acetaminophen 1 each 12/23/21 13:48 Hydrocodone/Acetaminophen 5-325 Mg Tab PO Q6H PRN Pain, Moderate (4-6) Albuterol 2.5 mg 12/23/21 04:41 Albuterol 2.5 Mg/3 Ml Nebu IH Q3HRT PRN Shortness Of Breath Bisacodyl 10 mg 12/24/21 11:30 Bisacodyl 10 Mg Rect Supp IN 12/24/21 19:00 ONCE@1130 NR Diphenhydramine HCl 25 mg 12/23/21 11:49 12/24/21 09:14 Diphenhydramine 25 Mg Cap PO 25 mg Q4H PRN Administration Itching Famotidine 20 mg 12/24/21 22:00 Famotidine 20 Mg Tab PO BID MERI Nicotine 21 mg 12/23/21 22:15 12/24/21 09:14 Nicotine 21 Mg/24 Hr Patch TD 21 mg QDAY MERI Administration Ondansetron HCl 4 mg 12/23/21 04:28 Ondansetron 4 Mg/2 Ml Inj IV Q8H PRN Nausea And Vomiting Oxycodone/Acetaminophen 2 tab 12/23/21 11:44 12/24/21 09:14 Oxycodone /Acetaminophen 5-325mg Tab PO 2 tab Q4H PRN Administration Pain, Moderate (4-6) Polyethylene Glycol 17 gm 12/24/21 12:00 Polyethylene Glycol 3350 17 Gm Powder PO 12/25/21 10:01 BID MERI Sodium Chloride 10 ml 12/23/21 04:28 Sodium Chloride 0.9% 10 Ml Flush Syringe IV PRN PRN LINE FLUSH Sodium Chloride 10 ml 12/23/21 10:00 12/24/21 09:15 Sodium Chloride 0.9% 10 Ml Flush Syringe IV 10 ml BID MERI Administration Vancomycin HCl 125 mg 12/23/21 18:00 12/24/21 05:55 Vancomycin 250 Mg/10 Ml Oral Liqd PO 125 mg Q6HR MERI Administration Protocol
[2021-12-24] MEDS: POLYETHYLENE GLYCOL 3350 17 GM POWDER PO SCH ×2 (13:43→22:00)
[2021-12-24] MEDS ORDERED: FLUCONAZOLE 200 MG TAB PO SCH (14:00)
[2021-12-24] MEDS ORDERED: ZOLPIDEM 5 MG TAB PO PRN (20:23)
[2021-12-24] MEDS ORDERED: NICOTINE 21 MG/24 HR PATCH TD SCH (21:22)
[2021-12-24] MEDS: FAMOTIDINE 20 MG TAB PO SCH (21:58)
[2021-12-25] MEDS: HYDROcodone/ACETAMINOPHEN 5-325 MG TAB PO PRN ×3 (03:18→10:49)
[2021-12-25] MEDS: VANCOMYCIN 250 MG/10 ML ORAL LIQD PO SCH ×3 (05:43→11:44)
[2021-12-25] MEDS: oxyCODONE /ACETAMINOPHEN 5-325MG TAB PO PRN (07:35)
[2021-12-25] MEDS: NICOTINE 21 MG/24 HR PATCH TD SCH (10:49)
[2021-12-25] MEDS: FAMOTIDINE 20 MG TAB PO SCH (10:50)
[2021-12-25 10:53] VITALS: BP 133/101
--- NOTE | 2021-12-25 11:37 | Discharge Summary ---
Providers - Providers Date of Admission: 12/23/21 04:29 Date of discharge: 12/25/21 Attending physician: ABEBE SAMANO MD 12/23/21 04:41 Consult to Physician [CONS] Routine Comment: Consulting Provider: NAREN LOVELL Physician Instructions: Reason For Exam: sbo Primary care physician: JESUS MILLER Hospitalization Reason for admission: Small bowel obstructionruled out, possible C. difficile infection Condition: Stable Pertinent studies: Reviewed. Procedures: None. Hospital course: Patient is a 41-year-old female past medical history of diverticulitis who presented to the ED with left lower quadrant pain that have progressively worsened over the previous weeks. During her presentation, patient also endorsed left jaw swelling and left forearm pain subsequent to a fall while on the bus weeks prior. The patient described having watery stools for the past multiple weeks that has since stopped during this hospitalization. In the ED, the patient was found to be hemodynamically stable with relatively unremarkable labs. Patient underwent CT abdomen and pelvis that revealed mild small bowel obstruction. General surgery was consulted for further management. With further investigation, the patient small bowel obstruction was ruled out. Further investigation revealed that the patient has been taking amoxicillin (not prescribed) for her left jaw, leading to concerns for C. difficile. Patient underwent CT face without contrast that was unremarkable for acute facial abnormality. Patient was counseled at length about not taking medications that are not prescribed to her, and the patient expressed understanding. Patient was started on empiric p.o. vancomycin for treatment of C. difficile. The patient's abdominal pain has since improved. Patient was counseled at length opiates would only slow down gut motility leading to worsening of her pain. Patient will be discharged instead on extra strength Tylenol. Patient expressed understanding. Patient is medically clear for discharge. Disposition: 01 HOME / SELF CARE / HOMELESS Final Discharge Diagnosis (Prints w/discharge instructions): Small bowel obstructionruled out, possible C. difficile infection, history of diverticulosis, diverticulitisruled out, swelling of left face, distant ground- level fall Time spent for discharge: 45 min Core Measure Documentation - Palliative Care Palliative Care/ Comfort Measures: Not Applicable - Core Measures Any of the following diagnoses?: none Exam - Constitutional Vitals: Temp Pulse Resp BP Pulse Ox 97.5 F L 62 18 133/101 100 12/25/21 10:43 12/25/21 10:43 12/25/21 10:43 12/25/21 10:43 12/25/21 10:43 General appearance: Present: no acute distress, well-nourished - EENT Eyes: Present: PERRL, EOM intact, irregular pupil ENT: hearing intact, clear oral mucosa, dentition normal - Neck Neck: Present: supple, normal ROM - Respiratory Respiratory effort: normal Respiratory: bilateral: CTA - Cardiovascular Rhythm: regular Heart Sounds: Present: S1 & S2 - Extremities Extremities: no ischemia, pulses intact, pulses symmetrical, No edema, normal temperature, normal color, Full ROM Peripheral Pulses: within normal limits - Abdominal General gastrointestinal: Present: soft, tender, non-distended, normal bowel sounds Localized gastrointestinal: tender: diffuse Female genitourinary: Present: deferred - Rectal Rectal Exam: deferred - Integumentary Integumentary: Present: clear, warm, dry - Musculoskeletal Musculoskeletal: strength equal bilaterally - Psychiatric Psychiatric: appropriate mood/affect, memory intact, cooperative, other (Limited insight) - Neurologic Neurologic: CNII-XII intact, moves all extremities - Allied Health Allied health notes reviewed: nursing Plan Activity: no restrictions Diet: regular Additional Instructions: Patient is a 41-year-old female past medical history of diverticulitis who presented to the ED with left lower quadrant pain that have progressively worsened over the previous weeks. During her presentation, patient also endorsed left jaw swelling and left forearm pain subsequent to a fall while on the bus weeks prior. The patient described having watery stools for the past multiple weeks that has since stopped during this hospitalization. In the ED, the patient was found to be hemodynamically stable with relatively unremarkable labs. Patient underwent CT abdomen and pelvis that revealed mild small bowel obstruction. General surgery was consulted for further management. With further investigation, the patient small bowel obstruction was ruled out. Further investigation revealed that the patient has been taking amoxicillin (not prescribed) for her left jaw, leading to concerns for C. difficile. Patient underwent CT face without contrast that was unremarkable for acute facial abnormality. Patient was counseled at length about not taking medications that are not prescribed to her, and the patient expressed understanding. Patient was started on empiric p.o. vancomycin for treatment of C. difficile. The patient's abdominal pain has since improved. Patient was counseled at length opiates would only slow down gut motility leading to worsening of her pain. Patient will be discharged instead on extra strength Tylenol. Patient expressed understanding. Patient is medically clear for discharge. Care Plan Goals: Patient is medically clear for discharge. Assessment: Patient is a 41-year-old female past medical history of diverticulitis who presented to the ED with left lower quadrant pain that have progressively worsened over the previous weeks. During her presentation, patient also endorsed left jaw swelling and left forearm pain subsequent to a fall while on the bus weeks prior. The patient described having watery stools for the past multiple weeks that has since stopped during this hospitalization. In the ED, the patient was found to be hemodynamically stable with relatively unremarkable labs. Patient underwent CT abdomen and pelvis that revealed mild small bowel obstruction. General surgery was consulted for further management. With further investigation, the patient small bowel obstruction was ruled out. Further investigation revealed that the patient has been taking amoxicillin (not prescribed) for her left jaw, leading to concerns for C. difficile. Patient underwent CT face without contrast that was unremarkable for acute facial abnormality. Patient was counseled at length about not taking medications that are not prescribed to her, and the patient expressed understanding. Patient was started on empiric p.o. vancomycin for treatment of C. difficile. The patient's abdominal pain has since improved. Patient was counseled at length opiates would only slow down gut motility leading to worsening of her pain. Patient will be discharged instead on extra strength Tylenol. Patient expressed understanding. Patient is medically clear for discharge. Follow up with: JESUS MILLER MD [Primary Care Provider] - 3-5 Days Forms: Work/School Release Form Prescriptions: polyethylene glycoL 3350 [Miralax 3350] 17 gm PO DAILY PRN #15 [email or web address] PRN Reason: Constipation Pantoprazole [Protonix TAB] 20 mg PO QDAY #30 tablet. Vancomycin 125 mg PO Q6HR #1 bottle
[2021-12-25] MEDS: POLYETHYLENE GLYCOL 3350 17 GM POWDER PO SCH (11:38)
== END 2021-12-25 13:15 | disposition home or self-care (01) | DRG 392 ==
LOC: ED 12:08 → 3A 12-23 04:29
PROVIDERS: ADMIT Hospitalist; ATTEND Student in an Organized Health Care Education/Training Program
DX: R10.9 Unspecified abdominal pain (principal); M27.2 Inflammatory conditions of jaws; W18.39XA Other fall on same level, initial encounter; Y93.89 Activity, other specified; Y92.89 Other specified places as the place of occurrence of the external cause; Y99.8 Other external cause status; B96.89 Other specified bacterial agents as the cause of diseases classified elsewhere; Z88.8 Allergy status to other drugs, medicaments and biological substances; Z82.49 Family history of ischemic heart disease and other diseases of the circulatory system
CPT/HCPCS: 36415; 70486; 74176; 80048; 80053; 80076; 81001; 81025; 84484; 84702; 85025; 94640; 99406; G0378; J3490; J7070; J1200; J2270; J2405; J3370